=== PATIENT | male | born 1955 | race Caucasian/White ===

== ENCOUNTER 2022-09-16 09:17 | Outpatient (REF) | payer MEDICARE, SELFPAY ==
[2022-09-16 10:42] LABS: MANUAL DIFF FLAG NO
[2022-09-16 10:45] LABS: Basophils Absolute Auto 0.1 X10*3/uL (0.0-0.2); Basophils Percent Auto 0.9 % (0-2); Eosinophils Absolute Auto 0.3 X10*3/uL (0.0-0.4); Eosinophils Percent Auto 5.4 % (0-4); Hematocrit 46.4 % (42.0-52.0); Hemoglobin 15.6 g/dl (14.0-18.0); Imm Gran Abs Auto 0.02 X10*3/uL (0.00-0.03); Imm Gran Pct Auto 0.3 % (0.0-0.4); Lymphocytes Absolute Auto 1.8 X10*3/uL (1.2-4.9); Lymphocytes Percent Auto 31.4 % (20-40); Mean Corpuscular HGB Conc 33.6 g/dl (31.0-36.0); Mean Corpuscular Hemoglobin 29.4 pg (27.0-33.0); Mean Corpuscular Volume 87.4 fL (80.0-98.0); Mean Platelet Volume 9.7 fL (9.4-12.4); Monocytes Absolute Auto 0.8 X10*3/uL (0.1-1.2); Monocytes Percent Auto 13.1 % (2-11); Neutrophils Absolute Auto 2.8 x10*3/uL (2.0-8.3); Neutrophils Percent Auto 48.9 % (45-73); Platelet Count 220 X10*3/uL (160-400); Red Blood Count 5.31 X10*6/uL (4.60-5.80); Red Cell Distribution Width 13.4 % (11.0-16.0); White Blood Count 5.8 X10*3/uL (4.8-10.8)
[2022-09-16 11:37] LABS: Erythrocyte Sedimentation Rate 5 MM/HR (0-15)
[2022-09-16 12:02] LABS: Alanine Aminotransferase 17 U/L (0-40); Albumin Level 4.3 g/dL (3.5-5.0); Alkaline Phosphatase 65 U/L (39-117); Anion Gap 13 (12-20); Aspartate Amino Transferase 15 U/L (5-37); Bilirubin Total 1.2 mg/dL (0.0-1.0); Blood Urea Nitrogen 17 mg/dL (9-16); Calcium 9.4 mg/dL (8.4-10.2); Carbon Dioxide 26 mmol/L (22-29); Chloride 108 mmol/L (96-108); Cholesterol 217 mg/dL; Estimated Glomerular Filt Rate > 60; Glucose Fasting 86 mg/dL (60-99); HDL Cholesterol 41 mg/dL; LDL Cholesterol Calculated 155 mg/dl; Potassium 4.5 mmol/L (3.3-5.1); Sodium 142 mmol/L (135-145); Total Protein 6.8 g/dL (6.5-8.0); Triglycerides 106 mg/dL; Uric Acid 7.8 mg/dL (3.4-7.0)
[2022-09-16 12:25] LABS: Prostate Specific Antigen Scr 0.52 ng/mL (<0.05-4.0); TSH reflex Free T4 6.32 uIU/mL (0.32-4.0)
[2022-09-16 14:16] LABS: Free T4 (Free Thyroxine) 0.86 ng/dL (0.71-1.85)
[2022-09-16 14:33] LABS: Appearance Urine Clear; Color Urine Yellow; Glucose Urine UA Negative (Negative); Leukocyte Esterase Urine Trace (Negative); Nitrite Urine Negative (Negative); PH 6.5 (5.0-9.0); Specific Gravity - Urine 1.025 (1.005-1.025); UMIC TRIGGER UA YES; Urine Blood Negative (Negative); Urine Ketones Negative (Negative); Urine Protein Negative (Neg-Trace)
[2022-09-16 14:37] LABS: Bacteria Urine None Seen (None Seen); Hyaline Casts Urine 0-2 /LPF (0-2); RBC Urine 0-2 /HPF (0-2); Squamous Epithelial Cell Urine 0-2 /HPF (0-2); WBC Urine 0-5 /HPF (0-5)
[2022-09-16 15:09] LABS: Creatinine Urine 168.88 mg/dL; Microalbum/Creatinine Ratio Ur 4.1 ug/mg cr
== END 2022-09-16 09:18 | disposition home or self-care (01) ==
LOC: HO.WFDLDS 09:17
PROVIDERS: Visit Provider Family Medicine
DX: Z00.00 Encounter for general adult medical examination without abnormal findings (principal); Z12.5 Encounter for screening for malignant neoplasm of prostate; M10.9 Gout, unspecified; M79.675 Pain in left toe(s); M79.89 Other specified soft tissue disorders; I10 Essential (primary) hypertension
CPT/HCPCS: 36415; 80053; 80061; 81001; 82043; 84153; 84439; 84443; 84550; 85025; 85652

== ENCOUNTER 2022-11-23 08:44 | Outpatient (REF) | payer MEDICARE, SELFPAY ==
[2022-11-23 13:52] LABS: Anion Gap 17 (12-20); Blood Urea Nitrogen 15 mg/dL (9-16); Carbon Dioxide 21 mmol/L (22-29); Chloride 110 mmol/L (96-108); Estimated Glomerular Filt Rate > 60; Glucose Random 88 mg/dL (60-115); Sodium 144 mmol/L (135-145)
[2022-11-23 14:08] LABS: Free T4 (Free Thyroxine) 0.89 ng/dL (0.71-1.85); Thyroid Stimulating Hormone 5.13 uIU/mL (0.32-4.0)
[2022-11-25 14:38] LABS: Triiodothyronine T3 Total 99 ng/dL (76-181)
== END 2022-11-23 08:45 | disposition home or self-care (01) ==
LOC: HO.WFDLDS 08:44
PROVIDERS: Visit Provider Family Medicine
DX: Z00.00 Encounter for general adult medical examination without abnormal findings (principal); M10.9 Gout, unspecified; R79.89 Other specified abnormal findings of blood chemistry; E03.9 Hypothyroidism, unspecified
CPT/HCPCS: 36415; 80048; 81003; 84439; 84443; 84480; 84550

== ENCOUNTER 2022-12-02 13:33 | Outpatient (AMB) | payer MEDICARE, SELFPAY ==
--- NOTE | 2022-12-02 13:36 | A.OFFPC_ITS ---
Vital Signs 12/02/22 13:37 Height 5 ft 11 in Weight 240 lb 6 oz BMI 33.5 BP 128/76 Blood Pressure Location Lt brachial Position Sitting Pulse 54 Pulse Oximetry (%) 98 Oxygen Delivery Method Room Air Intake Visit Reasons: f/u elevated TSH, labs Intake Note: Patient is here to follow up on labs, would like copy of his lab results. Allergies steroid Allergy (Mild, Uncoded 11/04/22 12:00) hiccups, swollen shoulder Tobacco use date assessed: 11/04/22 Fall risk assessment: No Falls in past year Last assessed Fall Risk: 12/02/22 Dental Screening Dental Screen Date: 12/02/22 Did you have a dental visit in the last 12 months?: Yes Did you have a dental problem in the last 6 months where you did not have access to dental care?: No Was dental information given to patient?: No HPI f/u elevated TSH, labs HPI Details 66 y/o male presents to f/u elevated TSH/labs. Labs were drawn 11/23/22. Reviewed labs with pt. TSH improved from 6.32 to 5.13. He denies any symptoms. Uric acid still elevated. Blood pressure today is 128/76. He reports he has never had a colonoscopy. [facility] Family History Mother High cholesterol Father Stroke Diabetes Maternal Grandfather Cardiovascular disease Brother Cardiovascular disease Social History Housing: House Patient Tobacco Use Status: Never used Tobacco e-Cigarette/Vaping Use: Never Used service: No Current occupational status: retired Cognitive needs: No Hearing needs: No Vision needs: No Review of Systems Const Denies chills, Denies fatigue, Denies fever(s), Denies headache(s) and Denies weakness ENT Denies dizziness and Denies headache(s) Card Denies chest pain, Denies lightheadedness, Denies dyspnea and Denies other (Palpitations) Resp Denies cough, Denies dyspnea, Denies wheezing and Denies other ( shortness of breath) Musc Denies numbness and Denies tingling Neuro Denies dizziness, Denies headache(s), Denies numbness, Denies tingling, Denies paresthesias and Denies weakness Psych Denies anxiety and Denies depression Endo Denies fatigue Aller/Immun Denies wheezing Physical exam (Primary Care) Vital Signs: Last Vital Signs Pulse 54 12/02/22 13:37 BP 128/76 12/02/22 13:37 Pulse Ox 98 12/02/22 13:37 Oxygen Delivery Method Room Air 12/02/22 13:37 BMI result Body Mass Index 33.5 Tobacco/Smoking Status: Tobacco use Status Tobacco use date assessed 11/04/22 12/02/22 13:38 Patient Tobacco Use Status Never used Tobacco 12/02/22 13:38 Tobacco use type 08/21/22 13:49 e-Cigarette/Vaping Use Never Used 12/02/22 13:38 Const General: no acute distress and well developed Nutritional Appearance: well nourished Orientation/consciousness: patient oriented x3 HENMT Head: Yes normocephalic and Yes atraumatic Eyes General: appearance normal, both eyes and all related structures Pupils: Equal, round and reactive pupils present EOM: EOMs intact bilaterally Resp Effort & Inspection: normal respiratory effort Auscultation: clear to auscultation bilaterally Cardio Rate: regular rate Rhythm: regular rhythm Heart sounds: S1 normal heart sound present, S2 normal heart sound present, no gallops, no murmurs and no rubs Neuro General: patient oriented x3 and gait normal Cranial nerves: Yes Equal, round and reactive pupils present Psych Affect: normal affect Assessment and Plan Assessment & Plan (1) Elevated TSH: Code(s): R79.89 - Other specified abnormal findings of blood chemistry Plan: TSH is still elevated though improved from prior check He has no symptoms; subacute hypothyroidism This may be secondary to an acute process which is resolved/resolving As he has no symptoms we will continue to follow it (2) Gout: Code(s): M10.9 - Gout, unspecified Plan: History of gout and elevated uric acid levels. We discussed allopurinol briefly but he wants to avoid taking additional medications. We agreed that we will treat acute flare ups but if he has repeated flare ups we will readdress a strategy of trying to keep his allopurinol lower with medication. Meantime he will work at lifestyle changes to keep uric acid levels lower (3) Hyperlipidemia: Code(s): E78.5 - Hyperlipidemia, unspecified Plan: Cholesterol levels have been high. He has a history of coronary artery disease and we started him on atorvastatin. He is tolerating this well We will follow-up on his lipid levels at his next visit (4) Coronary artery disease: Code(s): I25.10 - Atherosclerotic heart disease of [place] coronary artery without angina pectoris Plan: As above, tolerating atorvastatin and we will follow-up on lipid levels at his next visit (5) Screening for colon cancer: Code(s): Z12.11 - Encounter for screening for malignant neoplasm of colon Plan: Patient agrees to Cologuard testing Ordered Orders: Orders Triiodothyronine T3 Total Today E03.9 - Hypothyroidism, unspecified, R79.89 - Other specified abnormal findings of blood chemistry Thyroid Stimulating Hormone Today E03.9 - Hypothyroidism, unspecified, R79.89 - Other specified abnormal findings of blood chemistry Lipid Panel Today E78.5 - Hyperlipidemia, unspecified, Z00.00 - Encounter for general adult medical examination without abnormal findings Free T4 (Free Thyroxine) Today E03.9 - Hypothyroidism, unspecified, R79.89 - Other specified abnormal findings of blood chemistry Comprehensive [place]. Panel Fast Today E78.5 - Hyperlipidemia, unspecified, Z00.00 - Encounter for general adult medical examination without abnormal findings Referrals Cologuard Test Z12.11 - Encounter for screening for malignant neoplasm of colon, Z12.12 - Encounter for screening for malignant neoplasm of rectum Coding Level of Care Code Est Pt Level 4 (43087) Diagnoses Elevated TSH R79.89 Gout M10.9 Hyperlipidemia E78.5 Coronary artery disease I25.10 Screening for colon cancer Z12.11
[2022-12-02 13:37] VITALS: BP 128/76; PULSE 54; O2SAT 98; BMI 33.5
== END 2022-12-02 14:34 | disposition home or self-care (01) ==
PROVIDERS: PCP Family Medicine; Visit Provider Family Medicine
DX: R79.89 Other specified abnormal findings of blood chemistry (principal); M10.9 Gout, unspecified; E78.5 Hyperlipidemia, unspecified; I25.10 Atherosclerotic heart disease of native coronary artery without angina pectoris; Z12.11 Encounter for screening for malignant neoplasm of colon
CPT/HCPCS: 99214

== ENCOUNTER 2023-02-05 14:10 | Outpatient (AMB) | payer MEDICARE, SELFPAY ==
--- NOTE | 2023-02-05 14:16 | A.OFFPC_ITS ---
Vital Signs 02/05/23 14:47 Height 5 ft 11 in Weight 241 lb 6 oz BMI 33.7 BP 120/70 Blood Pressure Location Lt brachial Position Sitting Respiration 12 Pulse 82 Pulse Source Pulse Oximeter Temp 97 F Temp Source Temporal Artery Scan Pulse Oximetry (%) 97 Oxygen Delivery Method Room Air Intake Visit Reasons: ? rash Intake Note: Patient believes he has poison mario due to him doing maintenance to lawn and came in contact with the plant. Patient states hyes not sure but he believes it can be. Press Service Reader Required: No Accompanied by: Self / Same As Patient Allergies steroid Allergy (Mild, Uncoded 02/05/23 14:57) hiccups, swollen shoulder Medication List - Last Reconciled 02/05/23 by Grace Friedman CNP atorvastatin 10 mg PO BEDTIME 90 days omeprazole 20 mg PO DAILY 30 days Tobacco use date assessed: 11/04/22 Fall risk assessment: No Falls in past year Last assessed Fall Risk: 02/05/23 Dental Screening Dental Screen Date: 02/05/23 Did you have a dental visit in the last 12 months?: Yes Did you have a dental problem in the last 6 months where you did not have access to dental care?: No Was dental information given to patient?: Patient has dentist HPI HPI Comments History of Present Illness Details 67-year-old male presents with complaint s of an itchy rash to his face and right arm. He reports associated itching around his eyes. He signs and symptoms started 4 days ago and has been spreading. He notes that the day before the rash onset, he mowed the lawn and came in contact with a new laundry softener. He has not used any cream or taken oral medication for his signs and symptoms. No other symptoms. [facility] Medical History No pertinent past medical history Surgical History (Updated 02/05/23 @ 14:54 by Lety Coppola MA) No pertinent past surgical history Family History Mother High cholesterol Father Stroke Diabetes Maternal Grandfather Cardiovascular disease Brother Cardiovascular disease Social History Housing: House Patient Tobacco Use Status: Never used Tobacco e-Cigarette/Vaping Use: Never Used service: No Current occupational status: retired Cognitive needs: No Hearing needs: No Vision needs: No Review of Systems Const Details: Const Denies chills, Denies fatigue, Denies fever(s), Denies headache(s) and Denies weakness ENT Denies dizziness and Denies headache(s) Card Denies chest pain, Denies lightheadedness, Denies dyspnea and Denies other (Palpitations) Resp Denies cough, Denies dyspnea, Denies wheezing and Denies other ( shortness of breath) GI Denies abdominal pain, Denies melena, Denies hematochezia, Denies change in bowel habits, Denies dyspepsia and Denies nausea Denies hematuria and Denies dysuria Musc Denies abnormal gait, Denies myalgias, Denies arthralgias, Denies numbness and Denies tingling Skin/Breast Reports rash, Denies unusual bruising and Denies wounds Neuro Denies abnormal gait, Denies dizziness, Denies headache(s), Denies memory loss, Denies numbness, Denies Sensory deficit (Neuro), Denies tingling and Denies weakness Psych Denies anxiety, Denies depression, Denies memory loss Endo Denies cold intolerance, Denies fatigue, Denies heat intolerance, Denies polydipsia and Denies polyuria Aller/Immun Denies wheezing Physical exam (Primary Care) Vital Signs: Last Vital Signs Temp 97 F 02/05/23 14:47 Pulse 82 02/05/23 14:47 Resp 12 02/05/23 14:47 BP 120/70 02/05/23 14:47 Pulse Ox 97 02/05/23 14:47 Oxygen Delivery Method Room Air 02/05/23 14:47 BMI result Body Mass Index 33.7 Tobacco/Smoking Status: Tobacco use Status Tobacco use date assessed 11/04/22 02/05/23 14:24 Patient Tobacco Use Status Never used Tobacco 02/05/23 14:24 Tobacco use type 02/05/23 14:05 e-Cigarette/Vaping Use Never Used 02/05/23 14:24 Const Other: General: no acute distress and well developed Nutritional Appearance: well nourished Orientation/consciousness: patient oriented x3 HENMT Head: Yes normocephalic and Yes atraumatic Eyes General: appearance normal, both eyes and all related structures Pupils: Equal, round and reactive pupils present EOM: EOMs intact bilaterally Resp Effort & Inspection: normal respiratory effort Auscultation: clear to auscultation bilaterally Cardio Rate: regular rate Rhythm: regular rhythm Heart sounds: S1 normal heart sound present, S2 normal heart sound present, no gallops, no murmurs and no rubs GI Palpation (GI): No Abdominal aortic bruit present, Soft to palpation, nontender, No hepatosplenomegaly present and No Rebound tenderness present Auscultation: normal bowel sounds General: Yes no CVA tenderness Back/Spine/Pelvis Back: no CVA tenderness Cervical Spine: cervical ROM normal and No Cervical spine tenderness Thoracic/Lumbar Spine: thoraco-lumbar ROM normal, No pain with thoraco-lumbar ROM, No thoracic spinal tenderness and No lumbar spinal tenderness Extrem General: Yes normal to inspection, No edema and No calf tenderness Skin General: warm and dry. Normal skin color. Normal skin turgor Lesions: no lesions Rashes: Red bumps with streaks noted on the right forearm and few bumps noted to the face, skin is intact with no blister or drainage Trauma: no lacerations or abrasions Wounds: no wounds Nails: normal Neuro General: patient oriented x3, gait normal and no focal neuro deficit Cranial nerves: Yes Equal, round and reactive pupils present Cognition (Neuro): normal cognition Gait exam (Neuro): Normal gait present Sensory Exam: No Sensory deficit (Neuro) Psych Appearance: grossly normal Affect: normal affect Attitude: cooperative Thought process: Normal thought process present Assessment and Plan Assessment & Plan (1) Contact dermatitis: Code(s): L25.9 - Unspecified contact dermatitis, unspecified cause Plan: Red bumps with streaks noted on the right forearm and few bumps noted to the face, skin is intact with no blister or drainage Likely due to poison mario/oak/sumac or detergent Prednisone ordered. Take as prescribed May use calamine lotion or hydrocortisone cream if signs and symptoms persist after completing prednisone Return with worsening or new signs and symptoms Verbalized understanding and agreed with treatment plan. Medications: New prednisone 20 mg PO DAILY 5 tabs 0RF 5 days Coding Level of Care Code Est Pt Level 2 (36799) Diagnoses Contact dermatitis L25.9
[2023-02-05 14:47] VITALS: BP 120/70; PULSE 82; RESP 12; TEMP 36.1; O2SAT 97; BMI 33.7
== END 2023-02-05 15:28 | disposition home or self-care (01) ==
PROVIDERS: PCP Family Medicine; Visit Provider Nurse Practitioner Family
DX: L25.9 Unspecified contact dermatitis, unspecified cause (principal)
CPT/HCPCS: 99212

== ENCOUNTER 2023-02-10 13:56 | Outpatient (AMB) | payer MEDICARE, SELFPAY ==
--- NOTE | 2023-02-10 13:58 | A.OFFVIS_ITS ---
Intake Vital Signs 02/10/23 14:00 Height 5 ft 11 in Weight 240 lb 4.862 oz BMI 33.5 BP 132/75 Blood Pressure Location Lt brachial Position Sitting Pulse 56 Intake Visit Reasons: Fecal abnormalities Intake Note: Daniele presents in the office as a new patient for Fecal Abnormalities. CC: He states that he is not having any bowel issues. He states that he is surprised that there was an abnormality. He states the cologard came back po sitive. No other concerns. Allergies steroid Allergy (Mild, Uncoded 02/10/23 14:01) hiccups, swollen shoulder HPI HPI Comments History of Present Illness Details This is a 67y.o M with PMH of HLD who is here for positive cologuard. Pt does not report any gastrointestinal complaints including abd pain, N,V, D, blood in stool. No fam hx of CRC in first degree relatives. No anemia noted on labs. Had cologuard resulted on 12/16/22 which was positive and therefore in need of follow up colonoscopy. [facility] Medical History No pertinent past medical history Surgical History No pertinent past surgical history Family History Mother High cholesterol Father Stroke Diabetes Maternal Grandfather Cardiovascular disease Brother Cardiovascular disease Social History Housing: House Patient Tobacco Use Status: Never used Tobacco e-Cigarette/Vaping Use: Never Used service: No Current occupational status: retired Cognitive needs: No Hearing needs: No Vision needs: No Review of Systems Const All systems reviewed & are unremarkable except as noted in HPI and below Physical Exam Vital Signs: Last Vital Signs Pulse 56 02/10/23 14:00 BP 132/75 02/10/23 14:00 BMI result Body Mass Index 33.5 Gen appear: NAD HEENT: nonicteric, hard of hearing Chest: CTA CVS: Regular S1/S2 Abd: soft, nontender, nondistended, bowel sounds + Ext: no peripheral edema Neuro: A/Ox3, noted to move all extremities spontaneously Psych: interacting appropriately Assessment & Plan Assessment & Plan (1) Positive colorectal cancer screening using Cologuard test: Code(s): R19.5 - Other fecal abnormalities Plan Reviewed with the pt that a positive cologuard will need to be followed up with a colo within 3-6 months. Split PEG prep instructions reviewed and handout provided. FOllow up after colo. Medications: New peg 3350-electrolytes 236-22.74-6.74 -5.86 gram (Golytely) as per split prep instructions, until fecal effluent is clear 240 mL PO Q10M 4,000 mL 0RF colonoscopy Coding Level of Care Code New Pt Level 3 (73872) Diagnoses Positive colorectal cancer screening using Cologuard test R19.5
[2023-02-10 14:00] VITALS: BP 132/75; PULSE 56; BMI 33.5
== END 2023-02-10 15:11 | disposition home or self-care (01) ==
PROVIDERS: PCP Family Medicine; Visit Provider Internal Medicine
DX: R19.5 Other fecal abnormalities (principal)
CPT/HCPCS: 99203

== ENCOUNTER → 2023-02-10 13:56 | Outpatient (BNVA) | payer MEDICARE, SELFPAY | PROVIDERS: PCP Family Medicine; Visit Provider Internal Medicine ==

== ENCOUNTER 2023-03-03 14:00 | Day surgery (SDC) | payer MEDICARE, SELFPAY ==
[2023-03-02 14:03] VITALS: BMI 33.5
--- NOTE | 2023-03-03 13:20 | HO.ANESPROP2 ---
Documented by User: Kary Rosenbaum NP 03/03/23 13:23 HPI - Anesthesia Eval Consult details Narrative: 67yo M for Colonoscopy PMFSH Active Problems Active Problems: All Active Problems (Updated 02/05/23 @ 15:21 by Grace Friedman CNP) Contact dermatitis (Acute) Positive colorectal cancer screening using Cologuard test (Acute) GERD (gastroesophageal reflux disease) (Acute) Elevated TSH (Acute) Screening for prostate cancer (Acute) Screening for colon cancer (Acute) Adult general medical exam (Acute) Pain and swelling of toe of left foot (Acute) Hyperlipidemia (Acute) Coronary artery disease (Acute) Family history of heart disease (Acute) Tinnitus (Acute) Laboratory exam ordered as part of routine general medical examination (Acute) Gout (Acute) Past Medical History Medical History No pertinent past medical history Family History Family History Mother High cholesterol Father Stroke Diabetes Maternal Grandfather Cardiovascular disease Brother Cardiovascular disease Surgical History Surgical History No pertinent past surgical history Social History Social History Housing: House Patient Tobacco Use Status: Never used Tobacco e-Cigarette/Vaping Use: Never Used Use of substances other than those prescribed or required for medical reasons: No Are you DNR?: No Advance Directives: No Advance Directives Information Provided: No Advance Directives on File: No service: No Current occupational status: retired Cognitive needs: No Hearing needs: No Vision needs: No Meds Allergies Allergy/AdvReac Type Severity Reaction Status Date / Time steroid Allergy Mild hiccups, Uncoded 02/10/23 14:01 swollen shoulder Exam Exam Date and Time: March 03, 2023 1320 Height,Weight and Vital Signs: Height 5 ft 11 in Weight 108.862 kg Pertinent Lab Results Pertinent Lab Results: Laboratory Tests 09/16/22 09/16/22 09/16/22 09:20 09:20 09:20 WBC 5.8 Hgb 15.6 Hct 46.4 Plt Count 220 Sodium Potassium Chloride Carbon Dioxide BUN Creatinine 11/23/22 11/23/22 11/23/22 08:45 08:45 08:45 WBC Hgb Hct Plt Count Sodium 144 Potassium 4.0 Chloride 110 H Carbon Dioxide 21 L BUN 15 Creatinine 1.07 Assessment and Plan Assessment Anesthesia Assessment: Chart Reviewed Documented by User: Roslyn Bhat MD 03/03/23 15:50 PMFSH Past Medical History Medical History No pertinent past medical history Family History Family History Mother High cholesterol Father Stroke Diabetes Maternal Grandfather Cardiovascular disease Brother Cardiovascular disease Family history of problems with anesthesia: No Surgical History Surgical History No pertinent past surgical history History of Problems with Anesthesia: No Social History Social History Housing: House Patient Tobacco Use Status: Never used Tobacco e-Cigarette/Vaping Use: Never Used Use of substances other than those prescribed or required for medical reasons: No Are you DNR?: No Advance Directives: No Advance Directives Information Provided: No Advance Directives on File: No service: No Current occupational status: retired Cognitive needs: No Hearing needs: No Vision needs: No Meds Allergies Allergy/AdvReac Type Severity Reaction Status Date / Time steroid Allergy Mild hiccups, Uncoded 02/10/23 14:01 swollen shoulder Exam Airway Heart: rrr Lungs: cta Assessment and Plan Assessment Anesthesia Assessment: Anesthesia Plan Discussed Final Anesthetic Review Family History of Problems with Anesthesia: No History of Problems with Anesthesia: No NPO: Yes ASA Class: III Final Preanesthetic Review: No Changes in Pt Med Stat, Meds/Allgs Chart Reviewed, Consent Obtained/Reviewed and Anes Risks/Benef Reviewed Patient Risk: Intermediate Procedure Risk: Low Anesthetic Plan Anesthetic Plan: MAC: Disposition: Standard PACU
[2023-03-03 14:31] VITALS: BP 139/74; PULSE 49; RESP 18; TEMP 36.6; O2SAT 99; BMI 33.3
[2023-03-03] MEDS: Lactated Ringers 1,000 ML 50 ML IVCONT (14:51)
--- NOTE | 2023-03-03 15:21 | MHC.SHP ---
Pre-Procedural Eval Section A Date of Service: 03/03/23 Section B Chief Complaint: Other fecal abnormalities Details of Present Illness: pos cologuard Relevant Family History (Specify if Yes): No Relevant Social History: None Present Medications: see Short Stay Collaborative assessment Medical History: Significant History (gerd, high chol ) History of Previous Operations: No relevant previous surgery Allergies: Allergies Allergy/AdvReac Type Severity Reaction Status Date / Time steroid Allergy Mild hiccups, Uncoded 02/10/23 14:01 swollen shoulder Review of Systems Sugical H&P ROS: Negative: Constitution, Cardiovascular, Respiratory, Neurological, Psychiatric, Hem-Onc, Allergic/Immunologic, Gastrointestinal, Genitourinary, Musculoskeletal, Integumentary, Endocrine and Eyes/Ears/Nose/Throat Exam Surgical H&P Exam: Normal: HEENT, Normal: Heart, Normal: Lungs, Normal: Extremities, Normal: Abdomen, Normal: Skin and Normal: Neurological Plan Diagnosis/Plan: Unchanged I have reviewed the history and physical and performed a pertinent physical examination on my patient. No changes have occurred unless specified. Time Spent With Patient Time: Total time managing care of this patient today ____ minutes.
--- NOTE | 2023-03-03 15:54 | W.PM.OPN ---
Operative Note Operative Note Date of Service: 03/03/23 Narrative: Operative Information Procedure Description: Colonoscopy Indication: pos cologuard Anesthesia: MAC COLONOSCOPY Instrument: Olympus variable stiffness ADULT scope 190L Colonoscopy Monitoring: Vital signs and clinical assessment, continuous EKG monitoring, Pulse oximetry, Carbon Dioxide monitoring and blood pressure monitoring were done throughout the procedure. Colon withdrawal time was 18 minutes. Procedure: The patient was placed in the left lateral decubitis position and pre-procedure medications were administered. After a digital rectal examination of the ano-rectum, the video colonoscope was inserted into the rectum and advanced through the colon to the cecum/TI. The colonoscope was slowly withdrawn in a retrograde panoramic fashion and the colon mucosa was carefully examined including a retroflexed view of the rectum. Findings and interventions are described below. Procedure Difficulty: easy Findings: Terminal Ileum-normal Cecum: laterally spreading granular polyp 10-12 mm, lifted w/ eleview and removed with cold snare, 4-6 mm sessile polyp removed with cold forceps, another sessile polyp close to the orifice, lifted with eleview and gently removed piece meal with cold forceps Ascending Colon: normal Transverse Colon -normal Descending Colon: 12 mm sessile polyp removed with cold snare Sigmoid Colon: normal Rectum: Retroflexion with small internal hemorrhoids, grade I, at 20 cm there was 14-16 mm peduculated polyp, base injected with epinephrine and removed with hot snare, x 2 clips applied to the defect Anorectum - normal Colon preparation: [place] Bowel Preparation Scale Right colon; 2 Transverse colon: 2 Left colon; 2 (0 = Unprepared colon segment with mucosa not seen due to solid stool that cannot be cleared. 1 = Portion of mucosa of the colon segment seen, but other areas of the colon segment not well seen due to staining, residual stool and/or opaque liquid. 2 = Minor amount of residual staining, small fragments of stool and/or opaque liquid, but mucosa of colon segment seen well. 3 = Entire mucosa of colon segment seen well with no residual staining, small fragments of stool or opaque liquid) Impression and Post Procedure Diagnosis: polyps internal hemorrhoids Plan: High fiber diet leaflet Avoid straining at stool, epsom salts and sitz bath, anusol supps or cream Repeat Colonoscopy in 6-12 months or earlier if clinically indicated avoid nsaids for 5 days if any profuse rectal bleeding come to the ED GURU. Above findings were reviewed with the patient and relevant handouts were provided if indicated.
[2023-03-03 17:05] VITALS: BP 92/52; PULSE 51; RESP 12; TEMP 36.6; O2SAT 98
[2023-03-03 17:20] VITALS: BP 124/72; PULSE 48; RESP 13; O2SAT 100
[2023-03-03 17:35] VITALS: BP 126/70; PULSE 46; RESP 14; O2SAT 100
[2023-03-03 17:50] VITALS: BP 122/82; PULSE 49; RESP 16; O2SAT 99
[2023-03-03 18:05] VITALS: BP 127/69; PULSE 58; RESP 15; TEMP 36.1; O2SAT 99
== END 2023-03-03 18:10 | disposition home or self-care (01) ==
LOC: HO.SSS 19:07
PROVIDERS: PCP Family Medicine; Visit Provider Internal Medicine Gastroenterology
PROC: 0DJD8ZZ Inspection of Lower Intestinal Tract, Via Natural or Artificial Opening Endoscopic (ICD-10-PCS; CPT 45378; principal; 2023-03-03 16:40)
DX: R19.5 Other fecal abnormalities (principal); D12.0 Benign neoplasm of cecum; D12.4 Benign neoplasm of descending colon; D12.5 Benign neoplasm of sigmoid colon; D12.8 Benign neoplasm of rectum; K64.0 First degree hemorrhoids; K21.9 Gastro-esophageal reflux disease without esophagitis; E78.5 Hyperlipidemia, unspecified; Z79.899 Other long term (current) drug therapy; Z88.8 Allergy status to other drugs, medicaments and biological substances
CPT/HCPCS: 45385; 45380; 45381; 88305; J0171; J2371

== ENCOUNTER → 2023-03-03 16:40 | Outpatient (BNV) | payer MEDICARE, SELFPAY | PROVIDERS: PCP Family Medicine; Visit Provider Internal Medicine Gastroenterology | DX: Z12.11 Encounter for screening for malignant neoplasm of colon (principal); R19.5 Other fecal abnormalities; D12.0 Benign neoplasm of cecum; D12.4 Benign neoplasm of descending colon; D12.8 Benign neoplasm of rectum; K64.0 First degree hemorrhoids | CPT/HCPCS: 45380; 45381; 45385 ==

== ENCOUNTER 2023-03-04 10:02 | Outpatient (REF) | payer MEDICARE, SELFPAY ==
[2023-03-04 14:59] LABS: Free T4 (Free Thyroxine) 0.78 ng/dL (0.71-1.85); Thyroid Stimulating Hormone 4.59 uIU/mL (0.32-4.0)
[2023-03-04 15:12] LABS: Anion Gap 13 (12-20)
[2023-03-04 15:17] LABS: Alanine Aminotransferase 17 U/L (0-40); Albumin Level 4.1 g/dL (3.5-5.0); Alkaline Phosphatase 70 U/L (39-117); Aspartate Amino Transferase 16 U/L (5-37); Bilirubin Total 0.8 mg/dL (0.0-1.0); Blood Urea Nitrogen 15 mg/dL (9-16); Calcium 9.5 mg/dL (8.4-10.2); Carbon Dioxide 23 mmol/L (22-29); Chloride 110 mmol/L (96-108); Cholesterol 151 mg/dL (<200); Estimated Glomerular Filt Rate > 60; Glucose Fasting 138 mg/dL (60-99); HDL Cholesterol 36 mg/dL (>40); LDL Cholesterol Calculated 96 mg/dL (<100); Potassium 3.5 mmol/L (3.3-5.1); Sodium 142 mmol/L (135-145); Total Protein 6.9 g/dL (6.5-8.0); Triglycerides 95 mg/dL (<150)
[2023-03-05 06:39] LABS: Triiodothyronine T3 Total 90 ng/dL (76-181)
== END 2023-03-04 10:03 | disposition home or self-care (01) ==
LOC: HO.WFDLDS 10:02
PROVIDERS: Visit Provider Family Medicine
DX: Z00.00 Encounter for general adult medical examination without abnormal findings (principal); E78.5 Hyperlipidemia, unspecified; E03.9 Hypothyroidism, unspecified; R79.89 Other specified abnormal findings of blood chemistry
CPT/HCPCS: 36415; 80053; 80061; 84439; 84443; 84480

== ENCOUNTER 2023-03-09 09:26 | Outpatient (AMB) | payer MEDICARE, SELFPAY ==
--- NOTE | 2023-03-09 09:32 | MHC.PC.OV ---
Vital Signs 03/09/23 09:38 Height 5 ft 4 in Weight 240 lb 8 oz BMI 41.3 BP 126/82 Blood Pressure Location Lt brachial Position Sitting Pulse 55 Pulse Source Pulse Oximeter Pulse Oximetry (%) 98 Oxygen Delivery Method Room Air Intake Visit Reasons: Follow-up lipids and thyroid levels Intake Note: Patient is here to follow up on cholesterol and his thyroid. Patient is requesting refill of Omeprazole. Allergies steroid Allergy (Mild, Uncoded 03/09/23 09:39) hiccups, swollen shoulder Tobacco use date assessed: 11/04/22 Fall risk assessment: No Falls in past year Last assessed Fall Risk: 03/09/23 Dental Screening Dental Screen Date: 03/09/23 Did you have a dental visit in the last 12 months?: Yes Did you have a dental problem in the last 6 months where you did not have access to dental care?: No Was dental information given to patient?: Patient has dentist HPI Follow-up lipids and thyroid levels HPI Details 67 y/o male presents to f/u lipids and thyroid levels. Labs were drawn 03/04/23. Reviewed labs with pt. Elevated fasting glucose of 138. Triglycerides 95. TC 151. LDL 96. HDL low at 36. He is on artovastatin 10mg daily. TSH elevated at 4.59 but improving and has been elevated before. A1c today 03/09/23 is 5.5%. [facility] Medical History No pertinent past medical history Surgical History No pertinent past surgical history Family History Mother High cholesterol Father Stroke Diabetes Maternal Grandfather Cardiovascular disease Brother Cardiovascular disease Social History Housing: House Patient Tobacco Use Status: Never used Tobacco e-Cigarette/Vaping Use: Never Used service: No Current occupational status: retired Cognitive needs: No Hearing needs: No Vision needs: No Review of Systems Const Denies chills, Denies fatigue, Denies fever(s), Denies headache(s) and Denies weakness ENT Denies dizziness and Denies headache(s) Card Denies chest pain, Denies lightheadedness, Denies dyspnea and Denies other (Palpitations) Resp Denies cough, Denies dyspnea, Denies wheezing and Denies other ( shortness of breath) Musc Denies numbness and Denies tingling Neuro Denies dizziness, Denies headache(s), Denies numbness, Denies tingling, Denies paresthesias and Denies weakness Psych Denies anxiety and Denies depression Endo Denies fatigue Aller/Immun Denies wheezing Physical exam (Primary Care) Vital Signs: Last Vital Signs Pulse 55 03/09/23 09:38 BP 126/82 03/09/23 09:38 Pulse Ox 98 03/09/23 09:38 Oxygen Delivery Method Room Air 03/09/23 09:38 BMI result Body Mass Index 41.3 Tobacco/Smoking Status: Tobacco use Status Tobacco use date assessed 11/04/22 03/09/23 09:34 Patient Tobacco Use Status Never used Tobacco 03/09/23 09:34 Tobacco use type 02/05/23 14:05 e-Cigarette/Vaping Use Never Used 03/09/23 09:34 Const General: no acute distress and well developed Nutritional Appearance: well nourished Orientation/consciousness: patient oriented x3 HENMT Head: Yes normocephalic and Yes atraumatic Eyes General: appearance normal, both eyes and all related structures Pupils: Equal, round and reactive pupils present EOM: EOMs intact bilaterally Resp Effort & Inspection: normal respiratory effort Auscultation: clear to auscultation bilaterally Cardio Rate: regular rate Rhythm: regular rhythm Heart sounds: S1 normal heart sound present, S2 normal heart sound present, no gallops, no murmurs and no rubs Neuro General: patient oriented x3 and gait normal Cranial nerves: Yes Equal, round and reactive pupils present Psych Affect: normal affect Results AMB Hemoglobin A1c AMB Hemoglobin A1c 5.5 % Last Edit by Rabia Valverde CMA on 03/09/23 10:51 Assessment and Plan Assessment & Plan (1) Hyperlipidemia: Code(s): E78.5 - Hyperlipidemia, unspecified Plan: LDL?cholesterol?is?still?above?goal?of?less?than?70?for?patient?with?coronary?artery?disease Will?have?him?switch?from?atorvastatin?to?rosuvastatin (2) Coronary artery disease: Code(s): I25.10 - Atherosclerotic heart disease of [place] coronary artery without angina pectoris Plan: Stable (3) Hypothyroidism: Code(s): E03.9 - Hypothyroidism, unspecified Plan: TSH?elevated?but?improving Will?continue?to?watch?this (4) Elevated fasting glucose: Code(s): R73.01 - Impaired fasting glucose Plan: A1c?today:??5.5% Top?normal?range?and?elevated?fasting?blood?sugar. Encouraged?a?diet?low?in?sugars?and?starches We?can?follow?his?A1c (5) Positive colorectal cancer screening using Cologuard test: Code(s): R19.5 - Other fecal abnormalities Plan: Recent?polypectomy?and?pathology?appears?negative?for?high-grade?lesions Follow-up?with?GI (6) Elevated TSH: Code(s): R79.89 - Other specified abnormal findings of blood chemistry Plan: As?above (7) Low HDL (under 40): Code(s): E78.6 - Lipoprotein deficiency Plan: As?above (8) Gout: Code(s): M10.9 - Gout, unspecified Plan: Recent?flare-up?of?gout Will?check?uric?acid?with?his?next?blood?draw Could?consider?allopurinol?for?control Could?consider?colchicine?for?management?of?an?acute?flare-up (9) Left shoulder pain: Code(s): M25.512 - Pain in left shoulder Plan After?end?of?visit,?patient?notes?that?he?has?left?shoulder?pain He?can?schedule?an?appointment?specifically?for?this. Orders: Orders AMB Hemoglobin A1c Today Z13.9 - Encounter for screening, unspecified Coding Level of Care Code Est Pt Level 4 (32020) Diagnoses Hyperlipidemia E78.5 Coronary artery disease I25.10 Hypothyroidism E03.9 Elevated fasting glucose R73.01 Positive colorectal cancer screening using Cologuard test R19.5 Elevated TSH R79.89 Low HDL (under 40) E78.6 Gout M10.9 Left shoulder pain M25.512
[2023-03-09 09:38] VITALS: BP 126/82; PULSE 55; O2SAT 98; BMI 41.3
== END 2023-03-09 10:57 | disposition home or self-care (01) ==
PROVIDERS: PCP Family Medicine; Visit Provider Family Medicine
DX: E78.5 Hyperlipidemia, unspecified (principal); I25.10 Atherosclerotic heart disease of native coronary artery without angina pectoris; E03.9 Hypothyroidism, unspecified; R73.01 Impaired fasting glucose; R19.5 Other fecal abnormalities; R79.89 Other specified abnormal findings of blood chemistry; E78.6 Lipoprotein deficiency; M10.9 Gout, unspecified; M25.512 Pain in left shoulder
CPT/HCPCS: 83036; 99214

== ENCOUNTER 2023-03-17 11:24 | Outpatient (AMB) | payer MEDICARE, SELFPAY ==
--- NOTE | 2023-03-17 11:31 | A.OFFVIS_ITS ---
Intake Vital Signs 03/17/23 11:35 Height 5 ft 11 in Weight 242 lb 8.136 oz BMI 33.8 BP 133/76 Blood Pressure Location Lt brachial Position Sitting Pulse 61 Intake Visit Reasons: s/p colon Intake Note: Daniele presents in the office as a follow up colonoscopy. CC: no concerns today just here for the results to his procedure. Allergies steroid Allergy (Mild, Uncoded 03/17/23 11:35) hiccups, swollen shoulder HPI HPI Comments History of Present Illness Details This is a 67y.o M with PMH of HLD who is here for follow up. 02/10/23: Pt does not report any gastrointestinal complaints including abd pain, N,V, D, blood in stool. No fam hx of CRC in first degree relatives. No anemia noted on labs. Had cologuard resulted on 12/16/22 which was positive and therefore in need of follow up colonoscopy. 03/03/23: [place] (Dr Godoy) Cecum: laterally spreading granular polyp 10-12 mm, lifted w/ eleview and removed with cold snare, 4-6 mm sessile polyp removed with cold forceps, another sessile polyp close to the orifice, lifted with eleview and gently removed piece meal with cold forceps Ascending Colon: normal Transverse Colon -normal Descending Colon: 12 mm sessile polyp removed with cold snare Sigmoid Colon: normal [however per path report appears a polyp was removed from sigmoid colon as well] Rectum: Retroflexion with small internal hemorrhoids, grade I, at 20 cm there was 14-16 mm peduculated polyp, base injected with epinephrine and removed with hot snare, x 2 clips applied to the defect Path: A. Cecum, polypectomies: Fragments of tubular adenomata; negative for high-grade dysplasia or carcinoma. B. Colon, descending, polypectomy: Fragments of tubular adenoma; negative for high-grade dysplasia or carcinoma. C. Colon, sigmoid, polypectomy: Tubular adenoma; negative for high-grade dysplas ia or carcinoma. D. Rectum, polypectomy: Tubular adenoma; negative for high-grade dysplasia or carcinoma. 03/17/23: Seems total of 6 polyps removed - all TAs including >1cm polyps in cecum, DC and rectum. Pt reports no issues since the procedure. No bleeding noted after. Has increased fiber content in his diet and reports good result in terms of bowel habits. [facility] Medical History (Updated 03/17/23 @ 11:57 by Dayna Pulliam MD) No pertinent past medical history Surgical History (Updated 03/17/23 @ 11:35 by MONICA Bray) Hx of colonoscopy No pertinent past surgical history Family History Mother High cholesterol Father Stroke Diabetes Maternal Grandfather Cardiovascular disease Brother Cardiovascular disease Social History Housing: House Patient Tobacco Use Status: Never used Tobacco e-Cigarette/Vaping Use: Never Used service: No Current occupational status: retired Cognitive needs: No Hearing needs: No Vision needs: No Review of Systems Const All systems reviewed & are unremarkable except as noted in HPI and below Physical Exam Vital Signs: Last Vital Signs Pulse 61 03/17/23 11:35 BP 133/76 03/17/23 11:35 BMI result Body Mass Index 33.8 Gen appear: NAD HEENT: nonicteric, no cervical lymphadenopathy Chest: CTA CVS: Regular S1/S2 Abd: soft, nontender, nondistended, bowel sounds + Ext: no peripheral edema Neuro: A/Ox3, noted to move all extremities spontaneously Psych: interacting appropriately Assessment & Plan Assessment & Plan (1) Personal history of colonic polyps: Code(s): Z86.010 - Personal history of colonic polyps Plan Reviewed that all 6 polyps were precancerous but completely removed. Per endoscopist's instructions, due for repeat colonoscopy in a year. He was also advised to inform his FDRs to start their screening colonoscopy at 38y.o since he had advanced adenomas. Reports his daughter is 42y.o and he will let her know. Follow up in a year for surveillance colo. Bulletin board updated and reminder set. Coding Level of Care Code Est Pt Level 3 (94717) Diagnoses Personal history of colonic polyps Z86.010
[2023-03-17 11:35] VITALS: BP 133/76; PULSE 61; BMI 33.8
== END 2023-03-17 12:02 | disposition home or self-care (01) ==
PROVIDERS: PCP Family Medicine; Visit Provider Internal Medicine
DX: Z86.010 Personal history of colon polyps (principal); Z71.2 Person consulting for explanation of examination or test findings
CPT/HCPCS: 99213

== ENCOUNTER → 2023-03-17 11:24 | Outpatient (BNVA) | payer MEDICARE, SELFPAY | PROVIDERS: PCP Family Medicine; Visit Provider Internal Medicine | DX: Z86.010 Personal history of colon polyps (principal); Z98.890 Other specified postprocedural states | CPT/HCPCS: 99212 ==

== ENCOUNTER 2023-05-24 10:09 | Outpatient (REF) | payer MEDICARE, SELFPAY | END 2023-05-24 10:10 | disposition home or self-care (01) | LOC: HO.WFDLDS 10:09 | PROVIDERS: Visit Provider Family Medicine | DX: Z13.89 Encounter for screening for other disorder (principal) ==

== ENCOUNTER 2023-05-24 10:20 | Outpatient (REF) | payer MEDICARE, SELFPAY ==
[2023-05-24 14:35] LABS: Alanine Aminotransferase 18 U/L (0-40); Albumin Level 4.3 g/dL (3.5-5.0); Alkaline Phosphatase 73 U/L (39-117); Anion Gap 9 (12-20); Aspartate Amino Transferase 16 U/L (5-37); Bilirubin Total 0.8 mg/dL (0.0-1.0); Blood Urea Nitrogen 20 mg/dL (9-16); Calcium 9.7 mg/dL (8.4-10.2); Carbon Dioxide 26 mmol/L (22-29); Chloride 108 mmol/L (96-108); Cholesterol 146 mg/dL (<200); Estimated Glomerular Filt Rate > 60; Glucose Fasting 97 mg/dL (60-99); HDL Cholesterol 39 mg/dL (>40); LDL Cholesterol Calculated 91 mg/dL (<100); Potassium 4.4 mmol/L (3.3-5.1); Sodium 139 mmol/L (135-145); Total Protein 7.1 g/dL (6.5-8.0); Triglycerides 81 mg/dL (<150); Uric Acid 7.3 mg/dL (3.4-7.0)
== END 2023-05-24 10:21 | disposition home or self-care (01) ==
LOC: HO.WFDLDS 10:20
PROVIDERS: Visit Provider Family Medicine
DX: Z00.00 Encounter for general adult medical examination without abnormal findings (principal); M10.9 Gout, unspecified
CPT/HCPCS: 36415; 80053; 80061; 84550

== ENCOUNTER 2023-05-27 09:21 | Outpatient (AMB) | payer MEDICARE, SELFPAY ==
--- NOTE | 2023-05-27 09:27 | A.OFFPC_ITS ---
Vital Signs 05/27/23 09:28 Height 5 ft 11 in Weight 240 lb BMI 33.5 BP 112/60 Blood Pressure Location Lt brachial Position Sitting Pulse 71 Pulse Source Pulse Oximeter Pulse Oximetry (%) 98 Oxygen Delivery Method Room Air Intake Visit Reasons: f/u lipids, elevated fasting blood sugars and gout Intake Note: Patient is here to follow up on blood work. Allergies steroid Allergy (Mild, Uncoded 05/27/23 09:32) hiccups, swollen shoulder Medication List - Last Reconciled 05/27/23 by Clarence Lema MD atorvastatin 10 mg PO BEDTIME 90 days Tobacco use date assessed: 05/27/23 Fall risk assessment: No Falls in past year Last assessed Fall Risk: 05/27/23 HPI f/u lipids, elevated fasting blood sugars and gout HPI Details 67 y/o male presents to f/u lipids, elev ated fasting blood sugars and gout. Labs were drawn 05/24/23. Reviewed labs with pt. Uric acid mildly elevated at 7.3. Triglycerides 81. TC 146. LDL 91. HDL low at 39 but improved from 36. He is on artovastatin 10mg. Last A1c 03/09/23 5.5%. [facility] Medical History No pertinent past medical history Surgical History Hx of colonoscopy No pertinent past surgical history Family History Mother High cholesterol Father Stroke Diabetes Maternal Grandfather Cardiovascular disease Brother Cardiovascular disease Social History Housing: House Patient Tobacco Use Status: Never used Tobacco e-Cigarette/Vaping Use: Never Used service: No Current occupational status: retired Cognitive needs: No Hearing needs: No Vision needs: No Questionnaire PHQ-9 Over the last 2 weeks, how often have you been bothered by any of the following problems? 1. Little interest or pleasure in doing things: not at all 2. Feeling down, depressed, or hopeless: not at all 3. Trouble falling or staying asleep, or sleeping too much: not at all 4. Feeling tired or having little energy: not at all 5. Poor appetite or overeating: not at all 6. Feeling bad about yourself - or that you are a failure or have let yourself or your family down: not at all 7. Trouble concentrating on things, such as reading the newspaper or watching television: not at all 8. Moving or speaking so slowly that other people could have noticed. Or the opposite - being so fidgety or restless that you have been moving around a lot more than usual: not at all 9. Thoughts that you would be better off or of hurting yourself in some way: not at all Total score: 0 Source: Developed by Drs. Daniele Villalpando, Katya White, Henry Desai and colleagues, with an educational dulce maria from [employer]. Thrive Questionnaire Date Thrive assessed: 05/27/23 I am a: Patient What is your living situation today?: I have a steady place to live Within the past 12 months, did the food you bought not last and you didn't have the money to get more?: Never true Within the past 12 months, did you worry whether your food would run out before you got money to buy more?: Never true Do you have trouble paying for medicines?: No Do you have trouble getting transportation to medical appointments?: No Do you have trouble paying your heating and electricity bill?: No Do you have trouble taking care of your child, family member or friend?: No Do you have trouble with day-to-day activities such as bathing, preparing meals, shopping, managing finances, etc.?: No Are you currently unemployed and looking for a job?: No Are you interested in more education?: No AUDIT C Alcohol Use Questionnaire (AUDIT-C) 1. How often do you have a drink containing alcohol?: Never 3. How often do you have six or more drinks on one occasion?: Never Total Score: 0 ANNIA-7 AMB Questionnaire ANNIA-7 Date ANNIA - 7 assessed: 05/27/23 Feeling nervous, anxious, or on edge: 0 = Not at all Not being able to stop or control worryin = Not at all Worrying too much about different things: 0 = Not at all Trouble relaxin = Not at all Being so restless that it is hard to sit still: 0 = Not at all Becoming easily annoyed or irritable: 0 = Not at all Feeling afraid as if something awful might happen: 0 = Not at all Total ANNIA-7 score (0-4 normal; 5-9 mild; 10-14 moderate; 15-21 severe): 0 Source: Developed by Drs. Daniele Villalpando, Katya White, Henry Desai and colleagues, with an educational dulce maria from [employer]. Review of Systems Const Denies chills, Denies fatigue, Denies fever(s), Denies headache(s) and Denies weakness ENT Denies dizziness and Denies headache(s) Card Denies chest pain, Denies lightheadedness, Denies dyspnea and Denies other (Palpitations) Resp Denies cough, Denies dyspnea, Denies wheezing and Denies other ( shortness of breath) Musc Denies numbness and Denies tingling Neuro Denies dizziness, Denies headache(s), Denies numbness, Denies tingling, Denies paresthesias and Denies weakness Psych Denies anxiety and Denies depression Endo Denies fatigue Aller/Immun Denies wheezing Physical exam (Primary Care) Vital Signs: Last Vital Signs Pulse 71 05/27/23 09:28 BP 112/60 05/27/23 09:28 Pulse Ox 98 05/27/23 09:28 Oxygen Delivery Method Room Air 05/27/23 09:28 BMI result Body Mass Index 33.5 Tobacco/Smoking Status: Tobacco use Status Tobacco use date assessed 05/27/23 05/27/23 09:37 Patient Tobacco Use Status Never used Tobacco 05/27/23 09:37 Tobacco use type 02/05/23 14:05 e-Cigarette/Vaping Use Never Used 05/27/23 09:37 PHQ-9: PHQ-9 Score PHQ-9: Total score 0 05/27/23 09:43 Thrive Assessment: Date of Thrive Assessment Date Thrive assessed 05/27/23 05/27/23 09:37 Const General: no acute distress and well developed Nutritional Appearance: well nourished Orientation/consciousness: patient oriented x3 HENMT Head: Yes normocephalic and Yes atraumatic Eyes General: appearance normal, both eyes and all related structures Pupils: Equal, round and reactive pupils present EOM: EOMs intact bilaterally Resp Effort & Inspection: normal respiratory effort Auscultation: clear to auscultation bilaterally Cardio Rate: regular rate Rhythm: regular rhythm Heart sounds: S1 normal heart sound present, S2 normal heart sound present, no gallops, no murmurs and no rubs Neuro General: patient oriented x3 and gait normal Cranial nerves: Yes Equal, round and reactive pupils present Psych Affect: normal affect Assessment and Plan Assessment & Plan (1) Hyperlipidemia: Code(s): E78.5 - Hyperlipidemia, unspecified Plan: LDL?cholesterol?is?improving?on?atorvastatin?but?not?yet?at?goal?of?less?than?70 Increasing?atorvastatin?from?10?mg?daily?to?20?mg?daily. Encouraged?exercise?and?weight?loss (2) Coronary artery disease: Code(s): I25.10 - Atherosclerotic heart disease of [place] coronary artery without angina pectoris Plan: Stable Increasing?atorvastatin?as?above Encouraging?exercise (3) Low HDL (under 40): Code(s): E78.6 - Lipoprotein deficiency Plan: Encouraged?exercise (4) Gout: Code(s): M10.9 - Gout, unspecified Plan: Mildly?elevated?uric?acid?level.??No?flare-ups Encouraged?a?diet?lower?in?trigger?foods Encouraged?exercise?and?weight?loss (5) Elevated fasting glucose: Code(s): R73.01 - Impaired fasting glucose Plan: He?has?had?some?mildly?elevated?fasting?blood?sugars?and?most?recent?fasting?blo od?sugar?was?within?normal?limits. (6) Obesity (BMI 30.0-34.9): Code(s): E66.9 - Obesity, unspecified Plan: Encouraged?patient?to?work?at?decrease?portion?sizes?and?continue?regular?exerci se. Patient?asks?about?medications?for?weight?loss. Given?that?he?has?had?some?elevated?fasting?blood?sugars?and?h as?a?comorbidity?of?coronary?artery?disease, we?can?consider?this?at?his?next?appointment. Orders: Orders Free T4 (Free Thyroxine) Today E03.9 - Hypothyroidism, unspecified Triiodothyronine T3 Total Today E03.9 - Hypothyroidism, unspecified Lipid Panel Today I25.10 - Atherosclerotic heart disease of [place] coronary artery without angina pectoris, Z00.00 - Encounter for general adult medical examination without abnormal findings Comprehensive [place]. Panel Fast Today I25.10 - Atherosclerotic heart disease of [place] coronary artery without angina pectoris, Z00.00 - Encounter for general adult medical examination without abnormal findings Thyroid Stimulating Hormone Today E03.9 - Hypothyroidism, unspecified Hemoglobin A1c Today R73.01 - Impaired fasting glucose Medications: Changed From atorvastatin 10 mg PO BEDTIME 90 days 90 tabs 3RF To atorvastatin 20 mg PO BEDTIME 90 tabs 3RF 90 days Coding Level of Care Code Est Pt Level 4 (03751) Diagnoses Hyperlipidemia E78.5 Coronary artery disease I25.10 Low HDL (under 40) E78.6 Gout M10.9 Elevated fasting glucose R73.01 Obesity (BMI 30.0-34.9) E66.9
[2023-05-27 09:28] VITALS: BP 112/60; PULSE 71; O2SAT 98; BMI 33.5
== END 2023-05-27 10:26 | disposition home or self-care (01) ==
PROVIDERS: PCP Family Medicine; Visit Provider Family Medicine
DX: E78.5 Hyperlipidemia, unspecified (principal); I25.10 Atherosclerotic heart disease of native coronary artery without angina pectoris; E66.9 Obesity, unspecified; Z68.33 Body mass index [BMI] 33.0-33.9, adult; E78.6 Lipoprotein deficiency; M10.9 Gout, unspecified; R73.01 Impaired fasting glucose
CPT/HCPCS: 99214

== ENCOUNTER 2024-03-09 06:12 | Day surgery (SDC) | payer MEDICARE, SELFPAY ==
[2024-03-07 11:07] VITALS: BMI 33.9
--- NOTE | 2024-03-08 10:41 | HO.ANESPROP2 ---
HPI - Anesthesia Eval Consult details Narrative: 68yo M for Colonoscopy PMF Active Problems Active Problems: All Active Problems Personal history of colonic polyps (Acute) Low HDL (under 40) (Acute) Elevated fasting glucose (Acute) Contact dermatitis (Acute) Positive colorectal cancer screening using Cologuard test (Acute) GERD (gastroesophageal reflux disease) (Acute) Elevated TSH (Acute) Screening for prostate cancer (Acute) Adult general medical exam (Acute) Pain and swelling of toe of left foot (Acute) Hyperlipidemia (Acute) Coronary artery disease (Acute) Family history of heart disease (Acute) Tinnitus (Acute) Laboratory exam ordered as part of routine general medical examination (Acute) Gout (Acute) Past Medical History Medical History CAD (coronary artery disease) Gout Hyperlipidemia GERD (gastroesophageal reflux disease) Family History Family History Mother High cholesterol Father Stroke Diabetes Maternal Grandfather Cardiovascular disease Brother Cardiovascular disease Family history of problems with anesthesia: No Surgical History Surgical History H/O colonoscopy History of Problems with Anesthesia: No Social History Social History Housing: House Patient Tobacco Use Status: Never used Tobacco e-Cigarette/Vaping Use: Never Used service: No Current occupational status: retired Cognitive needs: No Hearing needs: No Vision needs: No Meds Allergies Allergy/AdvReac Type Severity Reaction Status Date / Time prednisone AdvReac hiccups Verified 03/09/24 06:33 for 4 days Exam Height,Weight and Vital Signs: Height 5 ft 11 in Weight 110.223 kg Assessment and Plan Assessment Anesthesia Assessment: Chart Reviewed Final Anesthetic Review Family History of Problems with Anesthesia: No History of Problems with Anesthesia: No
[2024-03-09 06:25] VITALS: BMI 33.7
[2024-03-09 06:37] VITALS: BP 138/85; PULSE 65; RESP 14; TEMP 36.7; O2SAT 95
[2024-03-09] MEDS: Lactated Ringers 1,000 ML 100 ML IVCONT (06:51)
--- NOTE | 2024-03-09 07:33 | HO.ANESPROP2 ---
[facility] Active Problems Active Problems: All Active Problems Personal history of colonic polyps (Acute) Low HDL (under 40) (Acute) Elevated fasting glucose (Acute) Contact dermatitis (Acute) Positive colorectal cancer screening using Cologuard test (Acute) GERD (gastroesophageal reflux disease) (Acute) Elevated TSH (Acute) Screening for prostate cancer (Acute) Adult general medical exam (Acute) Pain and swelling of toe of left foot (Acute) Hyperlipidemia (Acute) Coronary artery disease (Acute) Family history of heart disease (Acute) Tinnitus (Acute) Laboratory exam ordered as part of routine general medical examination (Acute) Gout (Acute) Past Medical History Medical History CAD (coronary artery disease) Gout Hyperlipidemia GERD (gastroesophageal reflux disease) Functional capacity: independent ambulation Family History Family History Mother High cholesterol Father Stroke Diabetes Maternal Grandfather Cardiovascular disease Brother Cardiovascular disease Family history of problems with anesthesia: No Surgical History Surgical History H/O colonoscopy History of Problems with Anesthesia: No Social History Social History Housing: House Patient Tobacco Use Status: Never used Tobacco e-Cigarette/Vaping Use: Never Used Use of substances other than those prescribed or required for medical reasons: No Are you DNR?: No Advance Directives: No Advance Directives Information Provided: Yes service: No Current occupational status: retired Cognitive needs: No Hearing needs: No Vision needs: No Meds Allergies Allergy/AdvReac Type Severity Reaction Status Date / Time prednisone AdvReac hiccups Verified 03/09/24 06:33 for 4 days Active Medications: Current Medications Lactated Ringer's (Lr) 1,000 mls @ 100 mls/hr IVCONT .Q10H DERRELL Last Admin: 03/09/24 06:51 Dose: 100 mls/hr Exam Height,Weight and Vital Signs: Height 5 ft 11 in Weight 109.769 kg Last Vital Signs Temp 98.0 F 03/09/24 06:37 Pulse 65 03/09/24 06:37 Resp 14 10/24/24 06:37 BP 138/85 03/09/24 06:37 Pulse Ox 95 03/09/24 06:37 O2 Del Method Room Air 03/09/24 06:37 Airway Mallampati Class: III TM Dist: >3cm Neck ROM: Full Heart: RRR Lungs: CTA Assessment and Plan Assessment Anesthesia Assessment: Anesthesia Plan Discussed and Chart Reviewed Final Anesthetic Review Family History of Problems with Anesthesia: No History of Problems with Anesthesia: No NPO: Yes ASA Class: III Final Preanesthetic Review: Meds/K[place] Chart Reviewed and Consent Obtained/Reviewed Patient Risk: Low Procedure Risk: Low Anesthetic Plan Anesthetic Plan: MAC: Disposition: Standard PACU
--- NOTE | 2024-03-09 07:45 | MHC.SHP ---
Pre-Procedural Eval Section A - 24 Hr Update-Section A only Date of Service: 03/09/24 Section B - Complete if H&P > 30 days Chief Complaint: Personal history of colonic polyps Present Medications: see Short Stay Collaborative assessment Allergies: Allergies Allergy/AdvReac Type Severity Reaction Status Date / Time steroid Allergy Mild hiccups, Uncoded 05/27/23 09:32 swollen shoulder Review of Systems Review of Systems Comment: Ten point ROS negative Exam Exam Comment: Gen appear: No acute distress HEENT: no icterus Chest: No overt resp distress Abd: soft, nontender, nondistended Psych: Stable affect, answering questions appropriately Neuro: A/Ox3 noted to move all extremities spontaneously Ext: no peripheral edema Plan Diagnosis/Plan: Unchanged I have reviewed the history and physical and performed a pertinent physical examination on my patient. No changes have occurred unless specified. Time Spent With Patient Time: Total time managing care of this patient today ____ minutes.
--- NOTE | 2024-03-09 08:09 | P.OPN-COLO_ITS ---
Colonoscopy Operative Note Operative Note Date of Service: 03/09/24 Narrative: Procedure: Colonoscopy Indication: Personal history of polyps Endoscopist: Dayna Pulliam MD Anesthesia Provider: Dr Gita Sinclair Anesthesia type: MAC Instrument: Olympus [id number]-[id number] Consent: Indication, risks vs benefits, and alternatives were discussed with the patient who gave written informed consent to proceed. EKG, pulse, pulse oximetry and blood pressure were monitored throughout the procedure. Please see anesthesia flowsheet. Procedure: The patient was brought to the procedure room and placed in the left lateral decubitus position. IV medications were administered by the anesthesia provider in attendance. A digital rectal exam was performed which was abnormal due to finding of hemorrhoids. A distal attachment cap was affixed to the tip of the colonoscope which was then inserted through the anus and advanced through the colon to the cecum at 75 cm,and terminal ileum. Appendiceal orifice and ileocecal valve were identified. Mucosa was carefully examined under high definition white light as the instrument was slowly withdrawn in a retrograde panoramic fashion. Retroflexion was performed in rectum. The procedure was not difficult. There were no immediate obvious complications. The quality of the prep was BBPS: 2+3+2 = adequate Withdrawal time 13 minutes. Limitations: No limitations. Findings: Mucosa: Normal to cecum and terminal ileum. No residual polyp noted in cecum at the site of piece meal polypectomy. Protruding lesions: * 4 sessile polyp of size 2-7 mm in descending colon. Cold snare polypectomy was performed. The polyp was completely removed and retrieved. * Large internal hemorrhoids without stigmata of recent bleeding. Excavated lesions: * Moderate diverticulosis of sigmoid colon. Impression: 1. Normal colon and terminal ileum mucosa 2. Total of 4 polyps removed 3. External and internal hemorrhoids 4. Diverticulosis Recommendations: - Follow path results. - Repeat colonoscopy in 3 years to follow up on advance adenoma from 2022 and can then revert to routine intervals.
[2024-03-09 08:14] VITALS: BP 101/59; PULSE 61; RESP 16; TEMP 36.7; O2SAT 94
[2024-03-09 08:29] VITALS: BP 125/71; PULSE 61; RESP 16; TEMP 36.7; O2SAT 96
--- NOTE | 2024-03-09 11:18 | HO.POSTANES ---
Post Anesthesia Evaluation Post Anesthesia Evaluation Date of Service: 03/09/24 Vital Signs: Vital Signs Temp Pulse Resp BP Pulse Ox O2 Del Method 03/09/24 08:29 98.1 F 61 16 125/71 96 Room Air 03/09/24 08:14 98.1 F 61 16 101/59 L 94 Room Air 03/09/24 06:37 98.0 F 65 14 138/85 95 Room Air Anesthesia: Monitored Mental Status: Awake Pain Control: Satisfactory Nausea/Vomiting: None Hydration: Adequate Anesthesia-Related Issues: No Anes. Related Issues
== END 2024-03-09 09:38 | disposition home or self-care (01) ==
PROVIDERS: PCP Family Medicine; Visit Provider Internal Medicine
PROC: 0DJD8ZZ Inspection of Lower Intestinal Tract, Via Natural or Artificial Opening Endoscopic (ICD-10-PCS; CPT 45378; principal; 2024-03-09 07:40)
DX: Z12.11 Encounter for screening for malignant neoplasm of colon (principal); Z86.0101 Personal history of adenomatous and serrated colon polyps; D12.4 Benign neoplasm of descending colon; K57.30 Diverticulosis of large intestine without perforation or abscess without bleeding; K64.8 Other hemorrhoids; K64.4 Residual hemorrhoidal skin tags; K21.9 Gastro-esophageal reflux disease without esophagitis; E78.5 Hyperlipidemia, unspecified; I25.10 Atherosclerotic heart disease of native coronary artery without angina pectoris; M10.9 Gout, unspecified; Z79.899 Other long term (current) drug therapy; Z88.8 Allergy status to other drugs, medicaments and biological substances
CPT/HCPCS: 45385; 45381; 88305; J2003; J2704

== ENCOUNTER → 2024-03-09 06:12 | Outpatient (BNV) | payer MEDICARE, SELFPAY | PROVIDERS: PCP Family Medicine; Visit Provider Internal Medicine | DX: Z12.11 Encounter for screening for malignant neoplasm of colon (principal); Z86.0100 Personal history of colon polyps, unspecified; D12.4 Benign neoplasm of descending colon; K57.30 Diverticulosis of large intestine without perforation or abscess without bleeding | CPT/HCPCS: 45385 ==

== ENCOUNTER → 2024-03-24 12:34 | Outpatient (BNVA) | payer MEDICARE, SELFPAY | PROVIDERS: PCP Family Medicine; Visit Provider Internal Medicine | DX: Z86.0100 Personal history of colon polyps, unspecified (principal) | CPT/HCPCS: 99212 ==

== ENCOUNTER 2024-07-20 10:45 | Outpatient (REF) | payer MEDICARE, SELFPAY ==
[2024-07-20 12:42] LABS: Alanine Aminotransferase 23 U/L (0-40); Albumin Level 4.2 g/dL (3.5-5.0); Alkaline Phosphatase 79 U/L (39-117); Anion Gap 11 (12-20); Aspartate Amino Transferase 18 U/L (5-37); Bilirubin Total 0.7 mg/dL (0.0-1.0); Blood Urea Nitrogen 17 mg/dL (9-16); Calcium 9.2 mg/dL (8.4-10.2); Carbon Dioxide 27 mmol/L (22-29); Chloride 109 mmol/L (96-108); Estimated Glomerular Filt Rate > 60; Glucose Fasting 95 mg/dL (60-99); Potassium 4.1 mmol/L (3.3-5.1); Sodium 143 mmol/L (135-145); Total Protein 7.5 g/dL (6.5-8.0)
--- OUTSIDE RECORDS SUMMARY | 2024-07-20 12:58 | XMS_ITS | Clinical Summary ---
Author Organization [employer] Address [address] [place] [address] [address]t [place] [address] Care Team Providers Care Fire Alarm Inspector Name Role Phone Unavailable Primary Care Provider Unavailabl e Allergies No known active allergies Medications atorvastatin (Lipitor) 20 MG tablet Take 20 mg by mouth at bedtime. 05/27/2023 Active Social History Tobacco Use Types Packs/Day Years Used Date Smoking Tobacco: Never Smokeless Tobacco: Never Tobacco Cessation:Counseling Given: Not Answered Alcohol Use Standard Drinks/Week Comments Never 0 (1 standard drink = 0.6 oz pur e alcohol) Sex and Gender Information Value Date Recorded Sex Assigned at Male 03/16/2022 10:31 AM EDT Legal Sex Male 10:31 AM EDT Gender Identity Male 03/16/2022 10:31 AM EDT Sexual Orientation Straight 03/16/2022 10 :31 AM EDT Last Filed Vital Signs Vital Sign Reading Time Taken Comments Blood Pressure 122/80 03/13/2024 9:04 AM EDT Pulse 69 03/13/2024 9:04 AM EDT Temperature - - Respiratory Rate - - Oxygen Saturation - - Inhaled Oxygen Concentration - - Weight - - Height - - Body Mass Index - - Plan of Treatment Upcoming Encounters Date Type Department Care Team (Late st Contact Info) Description 08/09/2024 9:00 AM EDT Office Visit [facility] [address] [place] [phone] Jessica Gonsalves [address] [place], [place] [phone] Health Maintenance Due Date Last Done Comments CT Colonography 1953 Colonoscopy 1953 Colorectal Cancer Screening 1953 Dental X-Ray: Full Mouth 1953 Depression Screening 1953 FIT DNA/Cologuard 1953 FIT 1953 FOBT 1953 Lipid Panel 1953 SDOH Screening 1953 Sigmoidoscopy 1953 Alcohol/Substance Use Screening 1965 Hepatitis C Screening 12/29/1971 DTaP/Tdap/Td Vaccines (1 - Tdap) 1972 Pneumococcal Vaccine: 50+ Years (1 of 1 - PCV) 12/29/2003 Zoster Vaccines (1 of 2) 12/29/2003 COVID-19 Vaccine (3 - 2023-2 5 season) 2024 10/02/2020, 09/04/2020 Influenza Vaccine (#1) 2024 Dental X-Ray: Bitewings 08/03/2024 08/03/2023 Dental Oral Exam 08/08/2024 02/08/2024, 08/03/2023 Dental Prophylaxis 08/08/2024 02/08/2024, 08/03/2023, 06/22/2022 Tobacco Screening 03/13/2025 03/13/2024 RSV Patients and Patients Aged 60 years or older (1 - 1-dose 75+ series) 2028 HIB Vaccines Aged Out No longer eligi ble based on patient's age to complete this topic HPV Vaccines Aged Out No longer eligi ble based on patient's age to complete this topic Hepatitis A Vaccines Aged Out No long er eligible based on patient's age to complete this topic Hepatitis B Vaccines Aged Out No long er eligible based on patient's age to complete this topic IPV Vaccines Aged Out No longer eligi ble based on patient's age to complete this topic Meningococcal Vaccine Aged Out No feliz ravinder eligible based on patient's age to complete this topic RSV under 20 months Aged Out No longe r eligible based on patient's age to complete this topic Rotavirus Vaccines Aged Out No longer eligible based on patient's age to complete this topic Procedures Procedure Name Priority Date/Time Associated Diagnosis Comments PROPHYLAXIS - ADULT Routine 02/08/2024 9 :00 AM EDT PERIODIC ORAL EVALUATION - ESTABLISHED PATIENT Routine 02/08/2024 9:00 AM EDT BITEWINGS - 4 RADIOGRAPHIC IMAGES Routine 08/03/2023 9:00 AM EDT from Last 3 Months or Most Recently Relevant to Health Maintenance Insurance [facility] FULL (MEDICAID)
--- OUTSIDE RECORDS SUMMARY | 2024-07-20 12:58 | XMS_ITS | Encounter Summary ---
Author Organization [employer] Address [address] [facility] 7t [place] [address] Care Team Providers Care Machine Feller Name Role Phone Unavailable Primary Care Provider Unavailabl e Encounter Details Date Type Department Care Team (Latest Contact Info) Description 10/07/2021 Abstract [facility] CONVERSIONS Dental, Provider, DDS Social History Tobacco Use Types Packs/Day Years Used Date Smoking Tobacco: Never Assessed Sex and Gender Information Value Date Recorded Sex Assigned at Male 03/16/2022 10:31 AM EDT Legal Sex Male 10:31 AM EDT Gender Identity Male 03/16/2022 10:31 AM EDT Sexual Orientation Straight 03/16/2022 10 :31 AM EDT documented as of this encounter Plan of Treatment Upcoming Encounters Date Type Department Care Team (Late st Contact Info) Description 08/09/2024 9:00 AM EDT Office Visit [facility] [address] [place], [place] [phone] Jessica Gonsalves 91 [place], [place] [phone] documented as of this encounter Visit Diagnoses Not on filedocumented in this encounter
--- OUTSIDE RECORDS SUMMARY | 2024-07-20 12:58 | XMS_ITS | Encounter Summary ---
Author Organization [employer] Address [address] [facility] 7t [place] [address] Care Team Providers Care Assembler Piano Name Role Phone Unavailable Primary Care Provider Unavailabl e Encounter Details Date Type Department Care Team (Latest Contact Info) Description 06/02/2019 Abstract [facility] CONVERSIONS Dental, Provider, DDS Social History Tobacco [...] Description 08/09/2024 9:00 AM EDT Office Visit [facility] D[facility]AL [address] [place], [place] [phone] Jessica Gonsalves 91 [place], [place] [phone] documented as of this encounter Visit Diagnoses Not on filedocumented in this encounter
--- OUTSIDE RECORDS SUMMARY | 2024-07-20 12:58 | XMS_ITS | Encounter Summary ---
Author Organization [employer] Address [address] [facility] 7t [place] [address] Care Team Providers Care Dial Painter Name Role Phone Unavailable Primary Care Provider Unavailabl e Encounter Details Date Type Department Care Team (Latest Contact Info) Description 07/25/2020 Abstract [facility] CONVERSIONS Dental, Provider, DDS Social [...] Description 08/09/2024 9:00 AM EDT Office Visit [facility]AL [address] [place], [place] [phone] Jessica Gonsalves 91 [place], [place] [phone] documented as of this encounter Visit Diagnoses Not on filedocumented in this encounter
--- OUTSIDE RECORDS SUMMARY | 2024-07-20 12:58 | XMS_ITS | Encounter Summary ---
Author Organization [employer] Address [address] [facility] 7t [place] [address] Care Team Providers Care Greenstone Polisher Operator Name Role Phone Unavailable Primary Care Provider Unavailabl e Encounter Details Date Type Department Care Team (Latest Contact Info) Description 05/31/2018 Abstract [facility] CONVERSIONS Dental, Provider, DDS Social History [...] Description 08/09/2024 9:00 AM EDT Office Visit [facility] [address] [place], [place] [phone] Jessica Gonsalves 91 [place], [place] [phone] documented as of this encounter Visit Diagnoses Not on filedocumented in this encounter
[2024-07-20 12:59] LABS: Free T4 (Free Thyroxine) 0.86 ng/dL (0.71-1.85); Thyroid Stimulating Hormone 6.28 uIU/mL (0.32-4.0)
[2024-07-21 08:49] LABS: Triiodothyronine T3 Total 98 ng/dL (76-181)
[2024-07-25 08:18] LABS: LDL Cholesterol Direct 104 mg/dL (<100)
== END 2024-07-20 10:46 | disposition home or self-care (01) ==
LOC: HO.WFDLDS 10:45
PROVIDERS: Visit Provider Family Medicine
DX: Z00.00 Encounter for general adult medical examination without abnormal findings (principal); E03.9 Hypothyroidism, unspecified; I25.10 Atherosclerotic heart disease of native coronary artery without angina pectoris; E78.5 Hyperlipidemia, unspecified
CPT/HCPCS: 36415; 80053; 83721; 84439; 84443; 84480

== ENCOUNTER 2024-07-25 11:34 | Outpatient (AMB) | payer MEDICARE, SELFPAY ==
--- NOTE | 2024-07-25 11:50 | A.OFFPC_ITS ---
Vital Signs 07/25/24 11:54 Height 5 ft 11 in Weight 249 lb 2 oz BMI 34.7 BP 130/80 Blood Pressure Location Rt brachial Position Sitting Respiration 16 Pulse 61 Pulse Source Pulse Oximeter Temp 98.5 F Temp Source Oral Pulse Oximetry (%) 94 Oxygen Delivery Method Room Air Intake Visit Reasons: Hearing problems Intake Note: Patient is here to follow up for hearing problems patient would like to get an audiology referral. pt would like a med refill for atorvastatin Principal Data Architect Required: No Allergies prednisone Adverse Reaction (Verified 07/25/24 11:53) hiccups for 4 days Medication List - Last Reconciled 07/25/24 by Clarence Lema MD atorvastatin 20 mg PO BEDTIME 90 days Tobacco use date assessed: 05/27/23 Dental Screening Dental Screen Date: 03/09/23 HPI Hearing problems HPI Details 68 y/o male presents today to f/u labs a nd to discuss hearing changes. Labs drawn 07/20/24. Reviewed labs with pt. Elevated LDL of 104. He is on artovastatin 20mg. TSH elevated at 6.28 uIU/mL. T3/T4 are fine. Has complaints of weight gain and fatigue. Reports ongoing hearing loss with tinnitus. HPI Comments History of Present Illness Details Documentation assistance for Clarence Lema MD, was provided by Joaquin Junior,? Production Control Coordinator on 07/25/2024 at 12:37 PM EST. I, Dr. Lema, have read, observed, and verified documentation. ?? PFS Medical History CAD (coronary artery disease) Gout Hyperlipidemia GERD (gastroesophageal reflux disease) Surgical History H/O colonoscopy Family History Mother High cholesterol Father Stroke Diabetes Maternal Grandfather Cardiovascular disease Brother Cardiovascular disease Social History Housing: House Patient Tobacco Use Status: Never used Tobacco e-Cigarette/Vaping Use: Never Used service: No Current occupational status: retired Cognitive needs: No Hearing needs: No Vision needs: No Questionnaire PHQ-9 Over the last 2 weeks, how often have you been bothered by any of the following problems? 1. Little interest or pleasure in doing things: not at all 2. Feeling down, depressed, or hopeless: not at all 3. Trouble falling or staying asleep, or sleeping too much: not at all 4. Feeling tired or having little energy: not at all 5. Poor appetite or overeating: not at all 6. Feeling bad about yourself - or that you are a failure or have let yourself or your family down: not at all 7. Trouble concentrating on things, such as reading the newspaper or watching television: not at all 8. Moving or speaking so slowly that other people could have noticed. Or the opposite - being so fidgety or restless that you have been moving around a lot more than usual: not at all 9. Thoughts that you would be better off or of hurting yourself in some way: not at all Total score: 0 Source: Developed by Drs. Daniele Villalpando, Katya White, Henry Desai and colleagues, with an educational dulce maria from [employer]. Thrive Questionnaire Date Thrive assessed: 05/27/23 I am a: Patient What is your living situation today?: I have a steady place to live Within the past 12 months, did the food you bought not last and you didn't have the money to get more?: Never true Within the past 12 months, did you worry whether your food would run out before you got money to buy more?: Never true Do you have trouble paying for medicines?: No Do you have trouble getting transportation to medical appointments?: No Do you have trouble paying your heating and electricity bill?: No Do you have trouble taking care of your child, family member or friend?: No Do you have trouble with day-to-day activities such as bathing, preparing meals, shopping, managing finances, etc.?: No Are you currently unemployed and looking for a job?: No Are you interested in more education?: No Please select the resources that you would like help with: None Currently or been in a relationship where the following occur: No concerns reported THRIVE Score: 0 AUDIT C Alcohol Use Questionnaire (AUDIT-C) 1. How often do you have a drink containing alcohol?: Never Total Score: 0 ANNIA-7 AMB Questionnaire ANNIA-7 Date ANNIA - 7 assessed: 05/27/23 Feeling nervous, anxious, or on edge: 0 = Not at all Not being able to stop or control worryin = Not at all Worrying too much about different things: 0 = Not at all Trouble relaxin = Not at all Being so restless that it is hard to sit still: 0 = Not at all Becoming easily annoyed or irritable: 0 = Not at all Feeling afraid as if something awful might happen: 0 = Not at all Total ANNIA-7 score (0-4 normal; 5-9 mild; 10-14 moderate; 15-21 severe): 0 Source: Developed by Drs. Daniele Villalpando, Katya White, Henry Desai and colleagues, with an educational dulce maria from [employer]. Review of Systems Const Denies chills, Reports fatigue, Denies fever(s), Denies headache(s) and Denies weakness ENT Denies dizziness and Denies headache(s) Card Denies chest pain, Denies lightheadedness, Denies dyspnea and Denies other (Palpitations) Resp Denies cough, Denies dyspnea, Denies wheezing and Denies other ( shortness of breath) Musc Denies numbness and Denies tingling Neuro Denies dizziness, Denies headache(s), Denies numbness, Denies tingling, Denies paresthesias and Denies weakness Psych Denies anxiety and Denies depression Endo Reports fatigue Aller/Immun Denies wheezing Physical exam (Primary Care) Vital Signs: Last Vital Signs Temp 98.5 F 07/25/24 11:54 Pulse 61 07/25/24 11:54 Resp 16 07/25/24 11:54 BP 130/80 07/25/24 11:54 Pulse Ox 94 07/25/24 11:54 Oxygen Delivery Method Room Air 07/25/24 11:54 BMI result Body Mass Index 34.7 Tobacco/Smoking Status: Tobacco use Status Tobacco use date assessed 05/27/23 07/25/24 11:57 Patient Tobacco Use Status Never used Tobacco 07/25/24 11:57 Tobacco use type 02/05/23 14:05 e-Cigarette/Vaping Use Never Used 07/25/24 11:57 PHQ-9: PHQ-9 Score PHQ-9: Total score 0 07/25/24 12:38 Thrive Assessment: Date of Thrive Assessment Date Thrive assessed 05/27/23 07/25/24 11:57 Currently or been in a relationship where the following occur: No concerns reported Const General: no acute distress and well developed Nutritional Appearance: well nourished Orientation/consciousness: patient oriented x3 HENMT Head: Yes normocephalic and Yes atraumatic Eyes General: appearance normal, both eyes and all related structures Pupils: Equal, round and reactive pupils present EOM: EOMs intact bilaterally Resp Effort & Inspection: normal respiratory effort Auscultation: clear to auscultation bilaterally Cardio Rate: regular rate Rhythm: regular rhythm Heart sounds: S1 normal heart sound present, S2 normal heart sound present, no gallops, no murmurs and no rubs Neuro General: patient oriented x3 and gait normal Cranial nerves: Yes Equal, round and reactive pupils present Psych Affect: normal affect Coding Level of Care Code Est Pt Level 4 (20659) Diagnoses Hyperlipidemia E78.5 Coronary artery disease I25.10 Elevated TSH R79.89 Hearing loss H91.90 Assessment & Plan Assessment & Plan (1) Hyperlipidemia: Code(s): E78.5 - Hyperlipidemia, unspecified Category: Medical Plan: LDL?cholesterol?is?still?above?goal?of?less?than?70 Had?increased?atorvastatin?from?10?mg?daily?to?20?mg?daily?at?prior?visit Will?increase?from?20?mg?daily?to?40?mg?daily Recheck?with?next?blood?draw (2) Coronary artery disease: Code(s): I25.10 - Atherosclerotic heart disease of [place] coronary artery without angina pectoris Category: Medical Plan: Stable (3) Elevated TSH: Code(s): R79.89 - Other specified abnormal findings of blood chemistry Category: Medical Plan: Symptomatic?subacute?hypothyroidism?with complaints? of?weight?gain?and?some?fatigue. Will?start?levothyroxine Recheck?in?6?weeks (4) Hearing loss: Code(s): H91.90 - Unspecified hearing loss, unspecified ear Category: Medical Plan: As?ongoing?hearing?loss?with?tinnitus. Has?upcoming?hearing?testing Is?still?having?difficulty?may?need?a?referral?to?ENT Orders: Orders Prostate Specific Antigen Scr Today Z12.5 - Encounter for screening for malignant neoplasm of prostate Lipid Panel Today E78.6 - Lipoprotein deficiency, Z00.00 - Encounter for general adult medical examination without abnormal findings Comprehensive [place]. Panel Fast Today I25.10 - Atherosclerotic heart disease of [place] coronary artery without angina pectoris, Z00.00 - Encounter for general adult medical examination without abnormal findings Medications: New levothyroxine 50 mcg PO DAILY 90 days 90 tabs 1RF Changed From atorvastatin 20 mg PO BEDTIME 90 days 90 tabs 3RF To atorvastatin 40 mg PO BEDTIME 90 days 90 tabs 3RF
[2024-07-25 11:54] VITALS: BP 130/80; PULSE 61; RESP 16; TEMP 36.9; O2SAT 94; BMI 34.7
--- OUTSIDE RECORDS SUMMARY | 2024-07-25 14:19 | XMS_ITS | Clinical Summary ---
Author Organization [employer] Address [address] [place] [address] 7t [place] [address] Care Team Providers Care Medical Billing And Coding Specialist Name Role Phone Unavailable Primary Care Provider [...] Description 08/09/2024 9:00 AM EDT Office Visit [facility] DENTAL [address] [place] [address] Jessica Gonsalves [address] [place], [place] [phone] Health Maintenance Due Date Last Done Comments [...] Most Recently Relevant to Health Maintenance Insurance [facility] [address] [facility] - HSN FULL (MEDICAID)
--- OUTSIDE RECORDS SUMMARY | 2024-07-25 14:19 | XMS_ITS | Encounter Summary ---
Author Organization [employer] Address [address] [facility] 7t [place] [address] Care Team Providers Care Outside Machinist Apprentice Name Role Phone Unavailable Primary Care Provider Unavailabl e Encounter Details Date Type Department Care Team (Latest Contact Info) Description 10/07/2021 Abstract [facility] CONVERSIONS Dental, Provider, DDS Social History [...] Description 08/09/2024 9:00 AM EDT Office Visit [facility] 91 [place], [place] [phone] Jessica Gonsalves 91 [place], [place] [phone] documented as of this encounter Visit Diagnoses Not on filedocumented in this encounter
--- OUTSIDE RECORDS SUMMARY | 2024-07-25 14:19 | XMS_ITS | Encounter Summary ---
Author Organization [employer] Address [address] [facility] 7t [place] [address] Care Team Providers Care Milk Pickup Truck Driver Name Role Phone Unavailable Primary Care Provider Unavailabl e Encounter Details Date Type Department Care Team (Latest Contact Info) Description 05/31/2018 Abstract [facility] CONVERSIONS Dental, Provider, DDS Social History [...] Description 08/09/2024 9:00 AM EDT Office Visit [facility] D[facility] [address] [place], [place] [phone] Jessica Gonsalves 91 [place], [place] [phone] documented as of this encounter Visit Diagnoses Not on filedocumented in this encounter
--- OUTSIDE RECORDS SUMMARY | 2024-07-25 14:19 | XMS_ITS | Encounter Summary ---
Author Organization [employer] Address [address] [facility] 7t [place] [address] Care Team Providers Care Cracking And Fanning Machine Operator Name Role Phone Unavailable Primary Care Provider Unavailabl e Encounter Details Date Type Department Care Team (Latest Contact Info) Description 07/25/2020 Abstract [facility] CONVERSIONS Dental, Provider, DDS Social History [...] Description 08/09/2024 9:00 AM EDT Office Visit [facility] D[facility] 91 [place], [place] [phone] Jessica Gonsalves 91 [place], [place] [phone] documented as of this encounter Visit Diagnoses Not on filedocumented in this encounter
--- OUTSIDE RECORDS SUMMARY | 2024-07-25 14:19 | XMS_ITS | Encounter Summary ---
Author Organization [employer] Address [address] [facility] 7t [place] [address] Care Team Providers Care Justowriter Operator Name Role Phone Unavailable Primary Care Provider Unavailabl e Encounter Details Date Type Department Care Team (Latest Contact Info) Description 06/02/[address] [facility] CONVERSIONS Dental, Provider, DDS Social History [...] Description 08/09/2024 9:00 AM EDT Office Visit [facility] D[facility] 91 [place], [place] [phone] Jessica Gonsalves 91 [place], [place] [phone] documented as of this encounter Visit Diagnoses Not on filedocumented in this encounter
== END 2024-07-25 16:00 | disposition home or self-care (01) ==
LOC: HO.HMCFM 11:34
PROVIDERS: PCP Family Medicine; Visit Provider Family Medicine
DX: E78.5 Hyperlipidemia, unspecified (principal); I25.10 Atherosclerotic heart disease of native coronary artery without angina pectoris; R79.89 Other specified abnormal findings of blood chemistry; H91.90 Unspecified hearing loss, unspecified ear

== ENCOUNTER → 2024-07-25 11:34 | Outpatient (BNVA) | payer MEDICARE, SELFPAY | PROVIDERS: PCP Family Medicine; Visit Provider Family Medicine | DX: E78.5 Hyperlipidemia, unspecified (principal); I25.10 Atherosclerotic heart disease of native coronary artery without angina pectoris; R79.89 Other specified abnormal findings of blood chemistry; H91.90 Unspecified hearing loss, unspecified ear | CPT/HCPCS: 99212 ==

== ENCOUNTER 2024-08-04 10:20 | Outpatient (REF) | payer MEDICARE, SELFPAY ==
--- OUTSIDE RECORDS SUMMARY | 2024-08-04 12:24 | XMS_ITS | Encounter Summary ---
Author Organization [employer] Address [address] [facility] 7t [place] [address] Care Team Providers Care Septic Pump Truck Driver Name Role Phone Unavailable Primary Care Provider Unavailabl e Encounter Details Date Type Department Care Team (Latest Contact Info) Description 08/02/2024 Travel Social History Tobacco Use Types Packs/Day Years Used Date Smoking Tobacco: Never Smokeless Tobacco: Never Alcohol Use Standard Drinks/Week Comments Never 0 [...] Description 08/09/2024 9:00 AM EDT Office Visit [facility] [address] [place], [place] [phone] Jessica Gonsalves 91 [place], [place] [phone] documented as of this encounter Visit Diagnoses Not on filedocumented in this encounter
--- OUTSIDE RECORDS SUMMARY | 2024-08-04 12:24 | XMS_ITS | Encounter Summary ---
Author Organization [employer] Address [address] [facility] 7t [place] [address] Care Team Providers Care Plastic Sheets Supervisor Name Role Phone Unavailable Primary Care Provider Unavailabl e Encounter Details Date Type Department Care Team (Latest Contact Info) Description 05/31/2018 Abstract [facility] CONVERSIONS Dental, Provider, DDS Social History [...] Description 08/09/2024 9:00 AM EDT Office Visit [facility] 91 [place], [place] [phone] Jessica Gonsalves 91 [place], [place] [phone] documented as of this encounter Visit Diagnoses Not on filedocumented in this encounter
--- OUTSIDE RECORDS SUMMARY | 2024-08-04 12:24 | XMS_ITS | Encounter Summary ---
Author Organization [employer] Address [address] [facility] 7t [place] [address] Care Team Providers Care 3D Artist Name Role Phone Unavailable Primary Care Provider Unavailabl e Encounter Details Date Type Department Care Team (Latest Contact Info) Description 06/02/2019 Abstract [facility] CONVERSIONS Dental, Provider, DDS Social [...] Description 08/09/2024 9:00 AM EDT Office Visit [facility] DENT[facility] 91 [place], [place] [phone] Jessica Gonsalves 91 [place], [place] [phone] documented as of this encounter Visit Diagnoses Not on filedocumented in this encounter
--- OUTSIDE RECORDS SUMMARY | 2024-08-04 12:24 | XMS_ITS | Clinical Summary ---
Author Organization [employer] Address [address] [place] [address] 7t [place] [address] Care Team Providers Care Windows Application Administrator Name Role Phone Unavailable Primary Care Provider Unavailabl e Allergies No known active allergies Medications atorvastatin (Lipitor) 20 MG tablet Take 20 mg by mouth at bedtime. 05/27/2023 Active Encounters Date Type Department Care Team Description 08/02/2024 Travel from Last 3 Months Social History Tobacco Use Types Packs/Day Years [...] Description 08/09/2024 9:00 AM EDT Office Visit [facility] [address] [place] [address] Jessica Gonsalves 91 [place], [place] [phone] Health Maintenance Due Date Last Done Comments [...] Most Recently Relevant to Health Maintenance Insurance [facility] DENTAL - HSN FULL (MEDICAID)
--- OUTSIDE RECORDS SUMMARY | 2024-08-04 12:24 | XMS_ITS | Encounter Summary ---
Author Organization [employer] Address 75 [facility] 7t [place] [address] Care Team Providers Care Malt Roaster Name Role Phone Unavailable Primary Care Provider Unavailabl e Encounter Details Date Type Department Care Team (Latest Contact Info) Description 07/25/2020 Abstract [facility] CONVERSIONS Dental, Provider, DDS Social History Tobacco [...] Description 08/09/2024 9:00 AM EDT Office Visit [facility] [address] [place], [place] [phone] Jessica Gonsalves 91 [place], [place] [phone] documented as of this encounter Visit Diagnoses Not on filedocumented in this encounter
--- OUTSIDE RECORDS SUMMARY | 2024-08-04 12:24 | XMS_ITS | Encounter Summary ---
Author Organization [employer] Address 75 [facility] 7t [place] [address] Care Team Providers Care Documentation Improvement Specialist Name Role Phone Unavailable Primary Care Provider Unavailabl e Encounter Details Date Type Department Care Team (Latest Contact Info) Description 10/07/2021 Abstract [facility] CONVERSIONS Dental, Provider, DDS Social History [...] Description 08/09/2024 9:00 AM EDT Office Visit [facility] D[facility]AL [address] [place], [place] [phone] Jessica Gonsalves 91 [place], [place] [phone] documented as of this encounter Visit Diagnoses Not on filedocumented in this encounter
== END 2024-08-04 10:21 | disposition home or self-care (01) ==
LOC: HO.SH 10:20
PROVIDERS: Visit Provider Nurse Practitioner Family
DX: Z01.118 Encounter for examination of ears and hearing with other abnormal findings (principal); H90.3 Sensorineural hearing loss, bilateral
CPT/HCPCS: 92557; 92567

== ENCOUNTER 2024-09-05 15:01 | Outpatient (REF) | payer SELFPAY ==
--- OUTSIDE RECORDS SUMMARY | 2024-09-05 17:56 | XMS_ITS | Encounter Summary ---
Author Organization [employer] Address [address] [place] [address] 7t [place] [address] Care Team Providers Care Associate Professor Of History Name Role Phone Unavailable Primary Care Provider Unavailabl e Encounter Details Date Type Department Care Team (Latest Contact Info) Description 07/25/2020 Abstract [facility] CONVERSIONS Dental, Provider, DDS Social [...] Care Team (Late st Contact Info) Description 09/11/2024 10:00 AM EDT Office Visit [facility] D[facility] [address] [place] [phone] Tim Gil BDS [address] [place] [address] 02/13/2025 9:00 AM EDT Office Visit [facility] [address] [place] [address] Jessica Gonsalves [address] [place] [phone] documented as of this encounter Visit Diagnoses Not on filedocumented in this encounter
--- OUTSIDE RECORDS SUMMARY | 2024-09-05 17:56 | XMS_ITS | Encounter Summary ---
Author Organization [employer] Address [address] [place] [address] 7t [place] [address] Care Team Providers Care Senior Counsel Name Role Phone Unavailable Primary Care Provider Unavailabl e Encounter Details Date Type Department Care Team (Latest Contact Info) Description 10/07/2021 Abstract [facility] CONVERSIONS Dental, Provider, DDS Social History Tobacco [...] Description 09/11/2024 10:00 AM EDT Office Visit [facility] D[facility] [address] [place] [address] Tim Gil BDS [address] [place] [address] 02/13/2025 9:00 AM EDT Office Visit [facility] [address] [place] [address] Jessica Gonsalves [address] [place] [address] documented as of this encounter Visit Diagnoses Not on filedocumented in this encounter
--- OUTSIDE RECORDS SUMMARY | 2024-09-05 17:56 | XMS_ITS | Encounter Summary ---
Author Organization [employer] Address [address] [place] [address] 7t [place] [address] Care Team Providers Care Stock Preparer Name Role Phone Unavailable Primary Care Provider Unavailabl e Encounter Details Date Type Department Care Team (Latest Contact Info) Description 05/31/2018 Abstract [facility] CONVERSIONS Dental, Provider, DDS Social History [...] Description 09/11/2024 10:00 AM EDT Office Visit [facility] D[facility] [address] [place] [address] Tim Gil BDS [address] [place] [address] 02/13/2025 9:00 AM EDT Office Visit [facility] D[facility]AL [address] [place] [address] Jessica Gonsalves [address] [place] [address] documented as of this encounter Visit Diagnoses Not on filedocumented in this encounter
--- OUTSIDE RECORDS SUMMARY | 2024-09-05 17:56 | XMS_ITS | Encounter Summary ---
Author Organization [employer] Address [address] [place] [address] 7t [place] [address] Care Team Providers Care Hotel Front Office Manager Name Role Phone Unavailable Primary Care Provider Unavailabl e Encounter Details Date Type Department Care Team (Latest Contact Info) Description 06/02/2019 Abstract [facility] CONVERSIONS Dental, Provider, DDS Social History Tobacco [...] Description 09/11/2024 10:00 AM EDT Office Visit [facility] DENTAL [address] [place] [address] Tim Gil BDS [address] [place] [address] 02/13/2025 9:00 AM EDT Office Visit [facility] D[facility] [address] [place] [address] Jessica Gonsalves [address] [place] [phone] documented as of this encounter Visit Diagnoses Not on filedocumented in this encounter
--- OUTSIDE RECORDS SUMMARY | 2024-09-05 17:56 | XMS_ITS | Clinical Summary ---
Author Organization [employer] Address [address] [place] [address] 7t [place] [address] Care Team Providers Care Posting Machine Operator Name Role Phone Unavailable Primary Care Provider Unavailabl e Allergies No known active allergies Medications atorvastatin (Lipitor) 20 MG tablet Take 20 mg by mouth at bedtime. 05/27/2023 Active Encounters Date Type Department Care Team Description 08/09/2024 9:00 AM EDT Office Visit [address] [address] Jessica Gonsalves 08/02/2024 Travel from Last 3 Months Social [...] Sign Reading Time Taken Comments Blood Pressure 92/66 08/09/2024 9:15 AM EDT Pulse 103 08/09/2024 9:15 AM EDT Temperature - - Respiratory Rate - - Oxygen Saturation - - Inhaled Oxygen Concentration - - Weight - - Height - - Body Mass Index - - Plan of Treatment Upcoming Encounters Date Type Department Care Team (Late st Contact Info) Description 09/11/2024 10:00 AM EDT Office Visit [facility] D[facility]AL [address] [place] [address] [phone] Tim Gil BDS 91 [place] [address] 02/13/2025 9:00 AM EDT Office Visit [facility] D[facility] 91 [place], [place] [phone] Brina, Jessica 91 [place], [place] [phone] Health Maintenance Due Date Last Done Comments [...] of 2) 12/29/2003 COVID-19 Vaccine (3 - season) 2024 10/02/2020, 09/04/2020 Influenza Vaccine (#1) 2024 Dental X-Ray: Bitewings 08/03/2024 08/03/2023 Dental Oral Exam 08/08/2024 02/08/2024, 08/03/2023 Dental Prophylaxis 02/10/2025 08/09/2024, 0 02/08/2024, 08/03/2023, Additional history exists Tobacco Screening 08/09/2025 08/09/2024 RSV Patients and Patients Aged 60 years [...] Procedure Name Priority Date/Time Associated Diagnosis Comments ORAL HYGIENE INSTRUCTIONS Routine 2024 9:00 AM EDT PROPHYLAXIS - ADULT Routine 08/09/2024 9 :00 AM EDT PERIODIC ORAL EVALUATION - ESTABLISHED PATIENT Routine 02/08/2024 9:00 AM EDT BITEWINGS - 4 RADIOGRAPHIC IMAGES Routine 08/03/2023 9:00 AM EDT from Last 3 Months or Most Recently Relevant to Health Maintenance Insurance [facility] DENTAL - HSN FULL (MEDICAID)
--- NOTE | 2024-09-06 09:18 | MHC.AU.MED ---
Medical Clearance for Hearing Instrumentation Date: 09/06/24 Patient Name: Daniele Dent Date of : 1955 Primary Care Provider: Referring Provider: Clarence Lema MD We have seen your patient on 09/06/24 and have determined that they are a candidate for amplification (See accompanying report). Specifically, they would benefit from: Hearing aid use in both ears There is a statute that addresses Medical Evaluation Requirements prior to fitting a patient with a hearing aid. According to [place] statute 265 CMR:6.03(1), (a) General. Except as provided in 265 CMR 6.03(1)(b), a miller head shall not sell a hearing aid unless the prospective user has presented to the miller head a written statement signed by a licensed physician that states that the patient's hearing loss has been medically evaluated and the patient may be considered a candidate for a hearing aid. The medical evaluation must have taken place within the preceding six months. Please note: Due to the [place] Statute referenced above, we cannot accept a signature other than that of a licensed physician. SALES ASSOCIATE FISHING and PA signatures cannot be accepted. I am in agreement with the above recommendation. There is no medical contraindication for hearing instrumentation. Physician Signature Date Physician Name (Printed)
== END 2024-09-05 15:02 | disposition home or self-care (01) ==
LOC: HO.HAP 15:01
PROVIDERS: Visit Provider Family Medicine
DX: Z46.1 Encounter for fitting and adjustment of hearing aid (principal); H90.3 Sensorineural hearing loss, bilateral
CPT/HCPCS: 92591; V5262; V5299

== ENCOUNTER 2024-09-12 15:18 | Outpatient (REF) | payer SELFPAY | END 2024-09-12 15:19 | disposition home or self-care (01) | LOC: HO.HAP 15:18 | PROVIDERS: Visit Provider Family Medicine | DX: Z13.89 Encounter for screening for other disorder (principal) ==

== ENCOUNTER 2024-10-03 11:07 | Outpatient (REF) | payer SELFPAY ==
--- OUTSIDE RECORDS SUMMARY | 2024-10-03 12:24 | XMS_ITS | Encounter Summary ---
Author Organization [employer] Address 75 [facility] 7t [place] [address] Care Team Providers Care Patient Support Specialist Name Role Phone Unavailable Primary Care Provider Unavailabl e Encounter Details Date Type Department Care Team (Latest Contact Info) Description 07/25/2020 Abstract [facility] CONVERSIONS Dental, Provider, DDS Social History [...] Care Team (Late st Contact Info) Description 02/13/2025 9:00 AM EDT Office Visit [facility] DENTAL 91 [place], [place] [phone] Jessica Gonsalves 91 [place], [place] [phone] documented as of this encounter Visit Diagnoses Not on filedocumented in this encounter
--- OUTSIDE RECORDS SUMMARY | 2024-10-03 12:24 | XMS_ITS | Encounter Summary ---
Author Organization [employer] Address 75 [facility] 7t [place] [address] Care Team Providers Care Document Review Attorney Name Role Phone Unavailable Primary Care Provider Unavailabl e Encounter Details Date Type Department Care Team (Latest Contact Info) Description 05/31/2018 Abstract [facility] CONVERSIONS Dental, Provider, DDS Social [...] Description 02/13/2025 9:00 AM EDT Office Visit [facility] 91 [place], [place] [phone] Jessica Gonsalves 91 [place], [place] [phone] documented as of this encounter Visit Diagnoses Not on filedocumented in this encounter
--- OUTSIDE RECORDS SUMMARY | 2024-10-03 12:24 | XMS_ITS | Encounter Summary ---
Author Organization [employer] Address 75 [facility] 7t [place] [address] Care Team Providers Care Television And Radio Repairer Name Role Phone Unavailable Primary Care Provider Unavailabl e Encounter Details Date Type Department Care Team (Latest Contact Info) Description 10/07/2021 Abstract [facility] CONVERSIONS Dental, Provider, DDS Social History Tobacco [...] Description 02/13/2025 9:00 AM EDT Office Visit [facility] D[facility] 91 [place], [place] [phone] Jessica Gonsalves 91 [place], [place] [phone] documented as of this encounter Visit Diagnoses Not on filedocumented in this encounter
--- OUTSIDE RECORDS SUMMARY | 2024-10-03 12:24 | XMS_ITS | Encounter Summary ---
Author Organization [employer] Address 75 [facility] 7t [place] [address] Care Team Providers Care Manager Garden Name Role Phone Unavailable Primary Care Provider Unavailabl e Encounter Details Date Type Department Care Team (Latest Contact Info) Description 06/02/2019 Abstract [facility] CONVERSIONS Dental, Provider, DDS Social [...] Description 02/13/2025 9:00 AM EDT Office Visit [facility] DENTAL 91 [place], [place] [phone] Jessica Gonsalves 91 [place], [place] [phone] documented as of this encounter Visit Diagnoses Not on filedocumented in this encounter
--- OUTSIDE RECORDS SUMMARY | 2024-10-03 12:25 | XMS_ITS | Clinical Summary ---
Author Organization [employer] Address [address] [place] [address] 7t [place] [address] Care Team Providers Care Shotblast Operator Name Role Phone Unavailable Primary Care Provider Unavailabl e Allergies No known active allergies Medications atorvastatin (Lipitor) 20 MG tablet Take 20 mg by mouth at bedtime. 05/27/2023 Active Encounters Date Type Department Care Team Description 09/11/2024 10:00 AM EDT Office Visit [facility] DENTAL [address] [place] [address] Tim Gil BDS 08/09/2024 9:00 AM EDT Office Visit [facility] D[facility] [address] [place] [address] [phone] Jessica Gonsalves 08/02/2024 Travel from Last 3 [...] Description 02/13/2025 9:00 AM EDT Office Visit [facility] 91 [place], [place] [phone] Jessica Gonsalves 91 [place], [place] [phone] Health Maintenance Due Date Last Done Comments [...] 02/08/2024, 08/03/2023, Additional history exists Tobacco Screening 09/11/2025 09/11/2024 RSV Patients and Patients Aged 60 years [...] patient's age to complete this topic Meningococcal B Vaccine Aged Out No l onger eligible based on patient's age to complete [...] Procedure Name Priority Date/Time Associated Diagnosis Comments 9 F(V) RESIN-BASED COMPOSITE - 1 SURF, ANTERIOR Routine 09/11/2024 10:00 AM EDT ORAL HYGIENE INSTRUCTIONS Routine 2024 9:00 AM EDT PROPHYLAXIS - ADULT Routine 08/09/2024 9 :00 AM EDT PERIODIC ORAL EVALUATION - ESTABLISHED PATIENT Routine 02/08/2024 9:00 AM EDT BITEWINGS - 4 RADIOGRAPHIC IMAGES Routine 08/03/2023 9:00 AM EDT from Last 3 Months or Most Recently Relevant to Health Maintenance Insurance [facility] [place] [employer] [facility] DENTAL - HSN FULL (MEDICAID)
== END 2024-10-03 11:08 | disposition home or self-care (01) ==
LOC: HO.HAP 11:07
PROVIDERS: Visit Provider Family Medicine
DX: Z13.89 Encounter for screening for other disorder (principal)

== ENCOUNTER 2024-12-01 09:24 | Outpatient (REF) | payer SELFPAY ==
--- OUTSIDE RECORDS SUMMARY | 2024-12-01 09:31 | XMS_ITS | Encounter Summary ---
Author Organization [employer] Address 75 [facility] 7t [place] [address] Care Team Providers Care Functional Support Analyst Name Role Phone Unavailable Primary Care Provider Unavailabl e Encounter Details Date Type Department Care Team (Latest Contact Info) Description 05/31/2018 Abstract [facility] CONVERSIONS Dental, Provider, DDS Social History Tobacco [...] Description 02/13/2025 9:00 AM EDT Office Visit [facility] DENTAL 91 [place], [place] [phone] Jessica Gonsalves 91 [place], [place] [phone] documented as of this encounter Visit Diagnoses Not on filedocumented in this encounter
--- NOTE | 2024-12-01 13:38 | MHC.AU.HA3 ---
Hearing Instrument Follow-Up- Binaural Date of Visit: 12/01/24 Right Ear: Make, Model, Color, Serial Number: O[employer]on Intent 1 miniRITE R, chroma beige [id number] Physical Education Instructor Repair Warranty: 10/07/2027 Physical Education Instructor Loss and Damage Warranty: 10/07/2027 [facility] Service Plan: 10/07/2027 Battery Size: Rechargeable Financial Accounting Manager/Slim Tube: 3 85g Earmold/Dome/CShell/SlimTip:10mm dbl barragan w/tails Type of Wax Guard: Oticon Minifit Prowax Dispensed By: [facility] Date of Fittin09/12/24 Left Ear: Make, Model, Color, Serial Number: [employer]on Intent 1 miniRITE R, chroma beige [id number] Physical Education Instructor Repair Warranty: 10/07/2027 Physical Education Instructor Loss and Damage Warranty: 10/07/2027 [facility] Service Plan: 10/07/2027 Battery Size: Rechargeable Financial Accounting Manager/Slim Tube: 3 85g Earmold/Dome/CShell/SlimTip: 10mm dbl barragan w/tails Type of Wax Guard: Oticon Minifit Prowax Dispensed By: [facility] Date of Fittin09/12/24 Follow-Up Summary: Daniele reports that he has been having retention problems. He notes that at his last visit tails were put on to help with this but on the second day he cut the tails off due to frustration with them not sitting in his ears correctly. Discussed options including trying again with the tails and making sure they are the right length, could need to be trimmed, or giving them more time to warm up to his ears. Discussed custom mold options. Daniele reports his has custom molds and he is interested in trying. He noted frustration that he has already spent so much on the hearing aids and now has to buy molds. Advised that the generic options work for many people and unfortunately there are costs associated with custom molds. Daniele reported desire for increased high frequency gain noting he would like to hear speech better, reports he turns treble all the way up on his radio. Increased gain from adaptation 2 to 3, providing increased high frequency gain. Impressions taken without incidence Au. Quoted $130 for slim tips. Recommendations: Recommendations: Has appt. scheduled. Diagnosis Code(s): Primary Diagnosis: H90.3 Bilateral Sensorineural Hearing Loss Signature: Provider: Best Lee, DRAKE-A
== END 2024-12-01 09:25 | disposition home or self-care (01) ==
LOC: HO.HAP 09:24
PROVIDERS: Visit Provider Family Medicine
DX: Z13.89 Encounter for screening for other disorder (principal)

== ENCOUNTER 2024-12-22 08:52 | Outpatient (REF) | payer SELFPAY ==
--- OUTSIDE RECORDS SUMMARY | 2024-12-22 09:04 | XMS_ITS | Encounter Summary ---
Author Organization [employer] Address 75 [facility] 7t [place] [address] Care Team Providers Care Operations General Agent Name Role Phone Unavailable Primary Care Provider Unavailabl e Encounter Details Date Type Department Care Team (Latest Contact Info) Description 05/31/2018 Abstract [facility] CONVERSIONS Dental, Provider, DDS Social History [...] Care Team (Late st Contact Info) Description 01/01/2025 11:00 AM EDT Office Visit [facility] D[facility] [address] [place] [address] Bronson Meng, DDS [address] [place] [address] 02/13/2025 9:00 AM EDT Office Visit [facility] 91 [place], [place] [phone] Jessica Gonsalves 91 [place], [place] [phone] documented as of this encounter Visit Diagnoses Not on filedocumented in this encounter
== END 2024-12-22 08:53 | disposition home or self-care (01) ==
LOC: HO.HAP 08:52
PROVIDERS: Visit Provider Family Medicine
DX: H90.3 Sensorineural hearing loss, bilateral (principal)
CPT/HCPCS: V5264

== ENCOUNTER 2025-01-17 09:41 | Outpatient (REF) | payer SELFPAY ==
--- OUTSIDE RECORDS SUMMARY | 2025-01-17 10:40 | XMS_ITS | Encounter Summary ---
Author Organization [employer] Address 75 [facility] 7t [place] [address] Care Team Providers Care Policy Writer Sales Name Role Phone Unavailable Primary Care Provider Unavailabl e Encounter Details Date Type Department Care Team (Latest Contact Info) Description 05/31/[address] [facility] CONVERSIONS Dental, Provider, DDS Social History [...] Description 02/13/2025 9:00 AM EDT Office Visit [facility] DENTAL 91 [place], [place] [phone] Jessica Gonsalves 91 [place], [place] [phone] documented as of this encounter Visit Diagnoses Not on filedocumented in this encounter
--- OUTSIDE RECORDS SUMMARY | 2025-01-17 10:40 | XMS_ITS | Clinical Summary ---
Author Organization [employer] Address 75 [facility] 7t [place] [address] Care Team Providers Care Police Patrol Lieutenant Name Role Phone Unavailable Primary Care Provider Unavailabl e Allergies No known active allergies Medications atorvastatin (Lipitor) 20 MG tablet Take 20 mg by mouth at bedtime. 05/27/2023 Active amoxicillin (Amoxil) 500 MG capsule Take 1 capsule (500 mg) by mouth every 8 (eight) hours for 7 days. 21 capsule 12/22/2024 12/30/19 25 amoxicillin (Amoxil) 500 MG capsule Take 1 capsule (500 mg) by mouth every 8 (eight) hours for 10 days. 30 capsule 01/01/2025 01/12/20 25 ibuprofen 800 MG tablet Take 1 tablet (800 mg) by mouth 3 times daily for 7 days. 21 tablet 01/01/2025 01/09/20 25 Active Problems No known active problems Encounters Date Type Department Care Team Description 01/01/2025 11:00 AM EDT Office Visit [facility] ADULT DENTAL [address] [place] [address] Bronson Meng DDS Dental abscess (Primary Dx) 12/22/2024 10:00 AM EDT Office Visit [facility] ADULT DENTAL [address] [place] [address] Janessa Diaz DDS 12/18/2024 9:00 AM EDT Office Visit [facility]ULT D[facility] [address] [place] [address] Bronson Meng DDS Dental abscess (Primary Dx) 11/20/2024 8:15 AM EDT Office Visit [facility] DENT[facility] [address] [facility] [place] [address] ZuhairnailaJerrodl, MAIRA Dental abscess (Primary Dx) from Last 3 Months Social History Tobacco [...] Sign Reading Time Taken Comments Blood Pressure 128/80 01/01/2025 10:38 AM EDT Pulse 69 01/01/2025 10:38 AM EDT Temperature - - Respiratory Rate - - Oxygen Saturation - - Inhaled Oxygen Concentration - - Weight - - Height - - Body Mass Index - - Plan of Treatment Upcoming Encounters Date Type Department Care Team (Late st Contact Info) Description 02/13/2025 9:00 AM EDT Office Visit [facility] DENTAL 91 [place], [place] [phone] Jessica Gonsalves 91 [place], [place] [phone] Health Maintenance Due Date Last Done Comments [...] 12/29/2003 Zoster Vaccines (1 of 2) 12/29/2003 Dental Oral Exam 08/08/2024 02/08/2024, 08/03/2023 COVID-19 Vaccine ( season) 2025 10/02/2020, 09/04/2020 Influenza Vaccine (#1) 2025 Dental Prophylaxis 02/10/2025 08/09/2024, 0 02/08/2024, 08/03/2023, Additional history exists Dental X-Ray: Bitewings 10/11/2025 10/10/2024, 08/02 Tobacco Screening 01/01/2026 01/01/2025 RSV Patients and Patients Aged 60 years [...] Procedure Name Priority Date/Time Associated Diagnosis Comments CASE PRESENTATION, DETAILED AND EXTENSIVE TREATMENT PLANNING Routine 01/01/2025 11:00 AM EDT 14 ENDODONTIC THERAPY, MOLAR TOOTH Routine 01/01/2025 11:00 AM EDT LIMITED ORAL EVALUATION - PROBLEM FOCUSED Routine 12/22/2024 10:00 AM EDT 14 INTRAORAL - PERIAPICAL FIRST RADIOGRAPHIC IMAGE Routine 12/22/2024 10:00 AM EDT ENDO - CLEAN AND SHAPE Routine 9:00 AM EDT 14 LIMITED ORAL EVALUATION - PROBLEM FOCUSED Routine 11/20/2024 8:15 AM EDT BITEWING - SINGLE RADIOGRAPHIC IMAGE Routine 10/10/2024 10:30 AM EDT PROPHYLAXIS - ADULT Routine 08/09/2024 9 :00 AM EDT PERIODIC ORAL EVALUATION - ESTABLISHED PATIENT Routine 02/08/2024 9:00 AM EDT from Last 3 Months or Most Recently Relevant to Health Maintenance Insurance DENTAL - HSN FULL (MEDICAID) * Guarantor: Daniele Dent Account Type Relation to Patient Date of Phone Billing Address Personal/Family Self [address] [place]
--- OUTSIDE RECORDS SUMMARY | 2025-01-17 10:40 | XMS_ITS | Encounter Summary ---
Author Organization [employer] Address 75 [facility] 7t [place] [address] Care Team Providers Care Grades 7 8 Tutor Name Role Phone Unavailable Primary Care Provider Unavailabl e Encounter Details Date Type Department Care Team (Latest Contact Info) Description 10/07/2021 Abstract [facility] CONVERSIONS Dental, Provider, DDS Social History [...] Description 02/13/2025 9:00 AM EDT Office Visit [facility] DENTAL [address] [place], [place] [phone] Jessica Gonsalves 91 [place], [place] [phone] documented as of this encounter Visit Diagnoses Not on filedocumented in this encounter
--- OUTSIDE RECORDS SUMMARY | 2025-01-17 10:40 | XMS_ITS | Encounter Summary ---
Author Organization [employer] Address [address] [facility] 7t [place] [address] Care Team Providers Care Optimization Manager Name Role Phone Unavailable Primary Care Provider Unavailabl e Encounter Details Date Type Department Care Team (Latest Contact Info) Description 07/25/2020 Abstract [facility] CONVERSIONS Dental, Provider, DDS Social History [...] Description 02/13/2025 9:00 AM EDT Office Visit [facility] [address] [place], [place] [phone] Jessica Gonsalves [address] [place], [place] [phone] documented as of this encounter Visit Diagnoses Not on filedocumented in this encounter
--- OUTSIDE RECORDS SUMMARY | 2025-01-17 10:40 | XMS_ITS | Encounter Summary ---
Author Organization [employer] Address [address] [facility] [address] [place] [address] Care Team Providers Care Chalk Tester Name Role Phone Unavailable Primary Care Provider Unavailabl e Encounter Details Date Type Department Care Team (Latest Contact Info) Description 06/02/2019 Abstract [facility] CONVERSIONS Dental, Provider, DDS [...] Description 02/13/2025 9:00 AM EDT Office Visit [facility] D[facility] [address] [place], [place] [phone] Jessica Gonsalves [address] [place], [place] [phone] documented as of this encounter Visit Diagnoses Not on filedocumented in this encounter
--- NOTE | 2025-01-17 13:52 | MHC.AU.HA3 ---
Hearing Instrument Follow-Up- Binaural Date of Visit: 01/17/25 Right Ear: Make, Model, Color, Serial Number: [employer]on Intent 1 miniRITE-R SN: [id number] Color: Chroma beige Air Defense Specialist Repair Warranty: 10/07/2027 Air Defense Specialist Loss and Damage Warranty: 10/07/2027 [facility] Service Plan: 10/07/2027 Battery Size: Rechargeable Economics Department Chair/Slim Tube: 3/85 Earmold/Dome/CShell/SlimTip:Acrylic canal lock lite tip SN: [id number] Stef: 03/25/2025 Type of Wax Guard: miniFit Dispensed By: [facility] Date of Fittin09/12/2024 Left Ear: Make, Model, Color, Serial Number: O[employer]on Intent 1 miniRITE-R SN: [id number] Color: Chroma beige Air Defense Specialist Repair Warranty: 10/07/2027 Air Defense Specialist Loss and Damage Warranty: 10/07/2027 [facility] Service Plan: 10/07/2027 Battery Size: Rechargeable Economics Department Chair/Slim Tube: 3/85 Earmold/Dome/CShell/SlimTip: Acrylic canal lock lite tip SN: [id number] Stef: 03/25/2025 Type of Wax Guard: miniFit Dispensed By: [facility] Date of Fittin09/12/2024 Follow-Up Summary: Cannot acclimate to occlusion of EMs, unable to wear. Data logging <30 mins/day. Per Daniele, with domes, sound quality good but retention an issue; with EMs, retention good but sound quality an issue. Wants larger vent. Performed real ear measures, discussing the affects of vent on acoustics of ZHU, noting tradeoffs between comfort, audibility, feedback, etc. Daniele willing to assume tradeoffs for less occlusion. Enlarged vent as much as possible in office. Although Daniele noted significant improvement in occlusion, he continued to want the vent even larger. Did not want to risk breaking EM due to thinness near edges of vent, therefore, recommended remake. Daniele agreeable. Emailed Remake order form to [facility] requesting IROS D-cavity vent as large as possible. Will reprogram with real ear when new EMs arrive. Also inquired about t-coil - added 2nd program at his request, instructed how to change programs via push button or kingsley. Recommendations: Patient will be contacted when materials have arrived. Recommendations (Other): Needs 1 hour fitting appointment Diagnosis Code(s): Primary Diagnosis: H90.3 Bilateral Sensorineural Hearing Loss Signature: Provider: Best Freed, CCC-A
== END 2025-01-17 09:42 | disposition home or self-care (01) ==
LOC: HO.HAP 09:41
PROVIDERS: Visit Provider Family Medicine
DX: Z13.89 Encounter for screening for other disorder (principal)

== ENCOUNTER 2025-02-07 15:08 | Outpatient (REF) | payer SELFPAY ==
--- OUTSIDE RECORDS SUMMARY | 2025-02-07 17:36 | XMS_ITS | Encounter Summary ---
Author Organization [employer] Address [address] [facility] [address] [place] [address] Care Team Providers Care Engine Assembler Name Role Phone Unavailable Primary Care Provider Unavailabl e Encounter Details Date Type Department Care Team (Latest Contact Info) Description 06/02/2019 Abstract [facility] CONVERSIONS Dental, Provider, DDS Social History [...] Description 02/13/2025 9:00 AM EDT Office Visit [facility] D[facility] [address] [place], [place] [phone] Jessica Gonsalves [address] [place], [place] [phone] documented as of this encounter Visit Diagnoses Not on filedocumented in this encounter
--- OUTSIDE RECORDS SUMMARY | 2025-02-07 17:36 | XMS_ITS | Encounter Summary ---
Author Organization [employer] Address [address] [facility] 7t [place] [address] Care Team Providers Care Director Of Solutions Architecture Name Role Phone Unavailable Primary Care Provider Unavailabl e Encounter Details Date Type Department Care Team (Latest Contact Info) Description 10/07/2021 Abstract [facility] CONVERSIONS Dental, Provider, DDS Social [...] Description 02/13/2025 9:00 AM EDT Office Visit [facility] DENTAL [address] [place], [place] [phone] Jessica Gonsalves [address] [place], [place] [phone] documented as of this encounter Visit Diagnoses Not on filedocumented in this encounter
--- OUTSIDE RECORDS SUMMARY | 2025-02-07 17:36 | XMS_ITS | Encounter Summary ---
Author Organization [employer] Address [address] [facility] 7[address] [place] [address] Care Team Providers Care Regional Tanker Truck Driver Name Role Phone Unavailable Primary Care Provider Unavailabl e Encounter Details Date Type Department Care Team (Latest Contact Info) Description 07/25/2020 Abstract [facility] CONVERSIONS Dental, Provider, DDS Social History [...] Description 02/13/2025 9:00 AM EDT Office Visit [facility] DENTAL [address] [place], [place] [phone] Jessica Gonsalves [address] [place], [place] [phone] documented as of this encounter Visit Diagnoses Not on filedocumented in this encounter
--- OUTSIDE RECORDS SUMMARY | 2025-02-07 17:36 | XMS_ITS | Encounter Summary ---
Author Organization [employer] Address [address] [facility] [address] [place] [address] Care Team Providers Care Fire Fighting Equipment Specialist Name Role Phone Unavailable Primary Care Provider Unavailabl e Encounter Details Date Type Department Care Team (Latest Contact Info) Description 05/31/2018 Abstract [facility] CONVERSIONS Dental, Provider, DDS Social [...] Description 02/13/2025 9:00 AM EDT Office Visit [facility] DENTAL [address] [place], [place] [phone] Jessica Gonsalves [address] [place], [place] [phone] documented as of this encounter Visit Diagnoses Not on filedocumented in this encounter
--- OUTSIDE RECORDS SUMMARY | 2025-02-07 17:37 | XMS_ITS | Clinical Summary ---
Author Organization [employer] Address [address] [facility] [address] [place] [address] Care Team Providers Care Spray Pilot Name Role Phone Unavailable Primary Care Provider [...] Description 01/01/2025 11:00 AM EDT Office Visit [facility] [address] [place] [address] Bronson Meng, KEENAS Dental abscess (Primary Dx) 12/22/2024 10:00 AM EDT Office Visit [facility] [address] [place] [address] Janessa Diaz DDS 12/18/2024 9:00 AM EDT Office Visit [facility] [address] [place] [address] Bronson Meng DDS Dental abscess (Primary Dx) 11/20/2024 8:15 AM EDT Office Visit [facility] [address] [place] [address] Bronson Meng DDS Dental abscess (Primary Dx) from Last 3 [...] Description 02/13/2025 9:00 AM EDT Office Visit [facility] [address] [place] [phone] Jessica Gonsalves [address] [place], [place] [phone] Health Maintenance Due Date Last Done Comments [...] Oral Exam 08/08/2024 02/08/2024, 08/03/2023 COVID-19 Vaccine (3 - season) 2025 10/02/2020, 09/04/2020 Influenza Vaccine (#1) [...] Most Recently Relevant to Health Maintenance Insurance [facility] HSN FULL (MEDICAID) * Guarantor: Daniele Dent Account Type Relation to Patient Date of Phone Billing Address Personal/Family Self [address] [place]
--- NOTE | 2025-02-08 12:59 | MHC.AU.HA3 ---
Hearing Instrument Follow-Up- Binaural Date of Visit: 02/07/25 Right Ear: Make, Model, Color, Serial Number: O[employer]on Intent 1 miniRITE-R SN: [id number] Color: Chroma beige Parking Patroller Repair Warranty: 10/07/2027 Parking Patroller Loss and Damage Warranty: 10/07/2027 [facility] Service Plan: 10/07/2027 Battery Size: Rechargeable Can Carrier/Slim Tube: 3/85 Earmold/Dome/CShell/SlimTip:Acrylic canal lock lite tip SN: [id number] Stef: 03/25/2025 Type of Wax Guard: miniFit Dispensed By: [facility] Date of Fittin09/12/2024 Left Ear: Make, Model, Color, Serial Number: Oticon Intent 1 miniRITE-R SN: [id number] Color: Chroma beige Parking Patroller Repair Warranty: 10/07/2027 Parking Patroller Loss and Damage Warranty: 10/07/2027 [facility] Service Plan: 10/07/2027 Battery Size: Rechargeable Can Carrier/Slim Tube: 3/85 Earmold/Dome/CShell/SlimTip: Acrylic canal lock lite tip SN: [id number] Stef: 03/25/2025 Type of Wax Guard: miniFit Dispensed By: [facility] Date of Fittin09/12/2024 Follow-Up Summary: Attempted to fit remade EMs; however, could not couple receivers to either new lite tip, left or right. Receivers would not lock into adapters. Planning to order remakes again; however, in the meantime reattempted to enlarge vents of current EMs in office, attempting to make it IROS, D-shaped. Noted improvement in occlusion, still slightly there but tolerable. Advised occlusion will never be complete eliminated but with consistent use of HAs, will eventually acclimate to it. Ran real ear measures, noting decrease in low frequency amplification with enlarged vent. Increased high frequencies to better match target; however, then experienced noticeable feedback. Reran feedback biofuels manager, which reduced amplification. Rediscussed trade offs of amplification vs large vent. Daniele still wants large vent, even after in depth discussion about effects of vent on real ear measures and feedback. Will use current EMs with larger vents until remakes arrive. 02/08/2025 - Called [employer], spoke to Lore in Audiology. Unsure what happened. Recommended reordering with note to ensure sign artist fits. Lore placed order while on phone. Reportedly no order # but should receive email once senior data warehouse architect team enters the order. Recommendations: Patient will be contacted when materials have arrived. Diagnosis Code(s): Primary Diagnosis: H90.3 Bilateral Sensorineural Hearing Loss Signature: Provider: Best Freed, [facility]
== END 2025-02-07 15:09 | disposition home or self-care (01) ==
LOC: HO.HAP 15:08
PROVIDERS: Visit Provider Family Medicine
DX: Z13.89 Encounter for screening for other disorder (principal)

== ENCOUNTER 2025-03-07 13:52 | Outpatient (REF) | payer SELFPAY ==
--- NOTE | 2025-03-07 17:03 | MHC.AU.HA3 ---
Hearing Instrument Follow-Up- Binaural Date of Visit: 03/07/25 Right Ear: Make, Model, Color, Serial Number: Oticon Intent 1 miniRITE-R SN: [id number] Color: Chroma beige Furniture Dipper Repair Warranty: 10/07/2027 Furniture Dipper Loss and Damage Warranty: 10/07/2027 [facility] Service Plan: 10/07/2027 Battery Size: Rechargeable Clinical Services Specialist/Slim Tube: 3/85 Earmold/Dome/CShell/SlimTip:Acrylic canal lock lite tip SN: [id number] Stef: 03/25/2025 Type of Wax Guard: miniFit Dispensed By: [facility] Date of Fittin09/12/2024 Left Ear: Make, Model, Color, Serial Number: O[employer]on Intent 1 miniRITE-R SN: [id number] Color: Chroma beige Furniture Dipper Repair Warranty: 10/07/2027 Furniture Dipper Loss and Damage Warranty: 10/07/2027 [facility] Service Plan: 10/07/2027 Battery Size: Rechargeable Clinical Services Specialist/Slim Tube: 3/85 Earmold/Dome/CShell/SlimTip: Acrylic canal lock lite tip SN: [id number] Stef: 03/25/2025 Type of Wax Guard: miniFit Dispensed By: [facility] Date of Fittin09/12/2024 Follow-Up Summary: Fit remade EMs; reported no difference in sound quality. Reminded him that the remake was to be able to couple the EM to the receivers. Reports still gets occlusion, which he tests by making sh sound. Advised that would be more related to high-frequency amplification than occlusion, as his own voice is otherwise okay. Reports his chewing is unbearable; also concerned EMs are functioning more as ear plugs. Again discussed acoustics, domes vs EMs, importance of consistent use in acclimating to sound quality. Attempted to enlarge vent as much as possible on original EMs. Reportedly better but occlusion still there. Explained again that it will never fully go away. Offered to try a different EM home improvement advisor with request to make as open as possible; however, ultimately Daniele opted to use current EMs (SNs: [id number] and [id number]) as is with enlarged vent. He was additional EMs (SNs: [id number] and [id number]) and receivers to keep as back up. Provided Oticon billboard erector removal tool at Daniele's request in case he chooses to switch back to domes. Recommendations: Hearing instrument follow-up or maintenance as needed. Please contact our clinic with any questions or concerns. Diagnosis Code(s): Primary Diagnosis: H90.3 Bilateral Sensorineural Hearing Loss Signature: Provider: Best Freed, [facility]
== END 2025-03-07 13:53 | disposition home or self-care (01) ==
LOC: HO.HAP 13:52
PROVIDERS: Visit Provider Internal Medicine
DX: Z13.89 Encounter for screening for other disorder (principal)